=== PATIENT | female | born 1940 | race Caucasian/White ===

== ENCOUNTER → 2016-05-28 | Outpatient (CLI) | payer MEDICARE, OTHER ==
[2016-05-28 13:50] LABS: ANION GAP 9 (5-19); BLOOD UREA NITROGEN 17 mg/dL (7-20); CALCIUM 9.4 mg/dL (8.4-10.2); CARBON DIOXIDE 31 mmol/L (22-30); CHLORIDE 102 mmol/L (98-107); GLUCOSE 76 mg/dL (75-110); POTASSIUM 4.3 mmol/L (3.6-5.0); SODIUM 141.7 mmol/L (137-145)
== END ==
LOC: OD 12:32
PROVIDERS: ATTEND Internal Medicine Cardiovascular Disease
DX: Z79.899 Other long term (current) drug therapy (principal)
CPT/HCPCS: 36415; 80048; 83735

== ENCOUNTER → 2016-06-19 | Outpatient (CLI) | payer MEDICARE, OTHER ==
--- NOTE | 2016-06-19 16:28 | WOMENS IMAGING REPORT ---
EXAM DESCRIPTION: BILAT SCREENING MAMMO W/CAD COMPLETED DATE/TIME: 06/19/2016 12:09 pm REASON FOR STUDY: Z12.31, ROUTINE SCREENING MAMMO Z12.31 ENCNTR SCREEN MAMMOGRAM FOR MALIGNANT NEOP LASM OF JENNY COMPARISON: 2009 to 2015 TECHNIQUE: Standard craniocaudal and mediolateral oblique views of each breast recorded using digita l acquisition. LIMITATIONS: None. FINDINGS: No masses, calcifications or architectural distortion. No areas of suspicion. Read with the assistance of CAD. .[facility] - R2 Cenova Version 1.3 .[facility] Imaging - R2 Cenova Version 1.3 .[facility] Imaging - R2 Cenova Version 2.4 .[facility] [place] R2 Cenova Version 2.4 .[facility] - R2 Quill Layer Version 9.2 BREAST DENSITY: b. There are scattered areas of fibroglandular density. BIRAD: 1 NEGATIVE RECOMMENDATION: ROUTINE SCREENING COMMENT: PATIENT NOTIFIED BY LETTER. The [employer] recommends an annual screening mammogram for women aged 40 years or over. Each patient will receive a reminder prior to the anniversary date of her mammogram. The [employer] (ACR) has developed recommendations for screening MRI of the breast s in certain patient populations, to be used in conjunction with mammography. Breast MRI surveillanc e may be appropriate for women with more than 20% lifetime risk of developing breast cancer as deter mined by genetic testing, significant family history of the disease, or history of mantle radiation f or Hodgkins Disease. ACR Practice Guidelines 2008. TECHNICAL DOCUMENTATION: FINDING NUMBER: (1) ASSESSMENT: (1) JOB ID: [id number] [employer]- All Rights Reserved
== END ==
LOC: WI 11:28
PROVIDERS: ATTEND Family Medicine
DX: Z12.31 Encounter for screening mammogram for malignant neoplasm of breast (principal)
CPT/HCPCS: 77067; G0202

== ENCOUNTER → 2016-07-04 | Outpatient (CLI) | payer MEDICARE, OTHER | LOC: RAD 13:22 | PROVIDERS: ATTEND Family Medicine | DX: E03.9 Hypothyroidism, unspecified (principal) | CPT/HCPCS: 76536 ==

== ENCOUNTER → 2016-08-28 | Outpatient (CLI) | payer MEDICARE, OTHER | LOC: OD 11:19 | PROVIDERS: ATTEND Internal Medicine Cardiovascular Disease | DX: E61.2 Magnesium deficiency (principal); R73.01 Impaired fasting glucose; E03.9 Hypothyroidism, unspecified | CPT/HCPCS: 36415; 83036; 83735; 84443 ==

== ENCOUNTER → 2017-02-20 | Outpatient (CLI) | payer MEDICARE, OTHER ==
[2017-02-20 10:57] LABS: ALANINE AMINOTRANSFERASE 30 U/L (9-52); ALBUMIN 3.8 g/dL (3.5-5.0); ALKALINE PHOSPHATASE 60 U/L (38-126); ANION GAP 9 (5-19); ASPARTATE AMINO TRANSFERASE 25 U/L (14-36); BILIRUBIN,DIRECT 0.4 mg/dL (0.0-0.4); BILIRUBIN,TOTAL 0.9 mg/dL (0.2-1.3); BLOOD UREA NITROGEN 17 mg/dL (7-20); CALCIUM 9.9 mg/dL (8.4-10.2); CARBON DIOXIDE 27 mmol/L (22-30); CHLORIDE 106 mmol/L (98-107); CHOLESTEROL 210.91 mg/dL (0-200); CREATININE RESULT 0.71 mg/dL (0.52-1.25); Direct HDL 59 mg/dL (>40); GLUCOSE 97 mg/dL (75-110); MAGNESIUM 1.8 mg/dL (1.6-2.3); POTASSIUM 4.4 mmol/L (3.6-5.0); SODIUM 141.8 mmol/L (137-145); TOTAL PROTEIN 6.1 g/dL (6.3-8.2); TRIGLYCERIDES 90 mg/dL (<150)
[2017-02-20 11:09] LABS: DIRECT LDL 128 mg/dL (<100)
== END ==
LOC: OD 09:40
PROVIDERS: ATTEND Internal Medicine Cardiovascular Disease
DX: E78.00 Pure hypercholesterolemia, unspecified (principal); E03.9 Hypothyroidism, unspecified; E61.2 Magnesium deficiency; Z79.899 Other long term (current) drug therapy
CPT/HCPCS: 36415; 80048; 80061; 80076; 83735; 84443

== ENCOUNTER → 2017-04-15 | Outpatient (CLI) | payer MEDICARE, OTHER ==
--- NOTE | 2017-04-15 11:42 | RADIOLOGY REPORT (SQ) ---
EXAM DESCRIPTION: VENOUS UNILATERAL LOWER COMPLETED DATE/TIME: 04/15/2017 11:18 am REASON FOR STUDY: PAIN R KNEE M25.561 PAIN IN RIGHT KNEE M79.89 OTHER SPECIFIED SOFT TISSUE DISORD ERS COMPARISON: None. TECHNIQUE: Dynamic and static brown scale and color images acquired of the right leg venous system. S elected spectral images acquired with additional compression and augmentation maneuvers. The contrala teral common femoral vein and saphenofemoral junction were also imaged. Images stored on PACS. LIMITATIONS: None. FINDINGS: COMMON FEMORAL: Normal phasicity, compression and augmentation. No visualized echogenic ma terial on brown scale. No defects on color images. FEMORAL: Normal compression and augmentation. No visualized echogenic material on brown scale. No defe cts on color images. POPLITEAL: Normal compression, augmentation. No visualized echogenic material on brown scale. No defec ts on color images. CALF VESSELS: Normal compression, augmentation. No visualized echogenic material on brown scale. No de fects on color images. GSV and SSV: Normal compression, augmentation. No visualized echogenic material on brown scale. No def ects on color images. ANY DEEP VENOUS INSUFFICIENCY: Not evaluated. ANY EVIDENCE OF POPLITEAL CYST: No. OTHER: No other significant finding. CONTRALATERAL COMMON FEMORAL VEIN AND SAPHENOFEMORAL JUNCTION: Normal phasicity, compression and augmentation. No visualized echogenic material on brown scale. No de fects on color images. IMPRESSION: NO EVIDENCE DVT OR SVT IN THE RIGHT LEG. TECHNICAL DOCUMENTATION: JOB ID: [id number] [employer]- All Rights Reserved
== END ==
LOC: SP 10:35
PROVIDERS: ATTEND Registered Nurse
DX: M79.89 Other specified soft tissue disorders (principal)
CPT/HCPCS: 93971

== ENCOUNTER → 2017-04-23 | Outpatient (CLI) | payer MEDICARE, OTHER | LOC: OD 08:30 | PROVIDERS: ATTEND Internal Medicine Cardiovascular Disease | DX: E03.9 Hypothyroidism, unspecified (principal); E61.2 Magnesium deficiency ==

== ENCOUNTER → 2017-07-01 | Outpatient (CLI) | payer MEDICARE ==
--- NOTE | 2017-07-01 16:48 | WOMENS IMAGING REPORT ---
EXAM DESCRIPTION: 3D SCREENING MAMMO BILAT COMPLETED DATE/TIME: 07/01/2017 12:59 pm REASON FOR STUDY: ROUTINE SCREENING; Z12.31 Z12.31 ENCNTR SCREEN MAMMOGRAM FOR MALIGNANT NEOPLASM O F JENNY COMPARISON: 06/19/2016 and 06/12/2015. TECHNIQUE: Standard craniocaudal and mediolateral oblique views of each breast recorded using digita l acquisition and breast tomosynthesis. LIMITATIONS: None. FINDINGS: No masses, calcifications or architectural distortion. No areas of suspicion. Read with the assistance of CAD. .[facility] - R2 Cenova Version 1.3 .[facility] Imaging - R2 Cenova Version 1.3 .[facility] Imaging - R2 Cenova Version 2.4 .[facility] [place]2 Cenova Version 2.4 .[facility] - R2 Multifocal Button Generator Version 9.2 IMPRESSION: NORMAL MAMMOGRAM. BIRADS 1. BREAST DENSITY: b. There are scattered areas of fibroglandular density. BIRAD: 1 NEGATIVE RECOMMENDATION: ROUTINE SCREENING COMMENT: The patient has been notified of the results by letter per MQSA requirements. Additional no tification policies are in place for contacting patient with suspicious or incomplete findings. Quality ID #225: The [employer] recommends an annual screening mammogram for women aged 40 years or over. This facility utilizes a reminder system to ensure that all patients receive reminder letters, and/or direct phone calls for appointments. This includes reminders for routine scr eening mammograms, diagnostic mammograms, or other Breast Imaging Interventions when appropriate. Th is patient will be placed in the appropriate reminder system. The [employer] (ACR) has developed recommendations for screening MRI of the breast s in certain patient populations, to be used in conjunction with mammography. Breast MRI surveillanc e may be appropriate for women with more than 20% lifetime risk of developing breast cancer as deter mined by genetic testing, significant family history of the disease, or history of mantle radiation f or Hodgkins Disease. ACR Practice Guidelines 2008. DBT Technology DBT is a type of tomographic mammography. With conventional mammography, overlapping breast tissue ma y make lesions difficult to detect, even with good compression. DBT uses an x-ray tube that rotates a round the breast, taking images at different angles. These images are then combined to create thin sl ices of the breast that the radiologist can view as a 3D reconstruction. The [employer] unit can perform full-field digital mammograms (2D imaging); or DBT (3D imaging); or both, in a combination mode that quickly performs both the mammogram and the tomosynthesis scan while the breast is still compressed. PQRS 6045F: Fluoroscopic imaging is not utilized for breast tomosynthesis. TECHNICAL DOCUMENTATION: FINDING NUMBER: (1) ASSESSMENT: (1) JOB ID: [id number] [employer]- All Rights Reserved
== END ==
LOC: WI 10:56
PROVIDERS: ATTEND Family Medicine
DX: Z12.31 Encounter for screening mammogram for malignant neoplasm of breast (principal)
CPT/HCPCS: 77063; 77067

== ENCOUNTER → 2017-11-10 | Outpatient (CLI) | payer MEDICARE, OTHER | LOC: OD 07:54 | PROVIDERS: ATTEND Internal Medicine Cardiovascular Disease | DX: E03.9 Hypothyroidism, unspecified (principal); E61.2 Magnesium deficiency; E56.9 Vitamin deficiency, unspecified | CPT/HCPCS: 36415; 82306; 83735; 84443 ==

== ENCOUNTER → 2018-02-20 | Outpatient (CLI) | payer MEDICARE, OTHER ==
--- NOTE | 2018-02-20 12:53 | WOMENS IMAGING REPORT ---
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 Selected additional c olor/power Doppler images recorded. All images stored to PACS. LIMITATIONS: None. FINDINGS: RIGHT LOBE: Normal size. Heterogeneous echotexture. No cystic or solid masses. LEFT LOBE: Normal size. Heterogeneous echotexture. No cystic or solid masses. ISTHMUS: Normal size. Homogeneous echotexture. No cystic or solid masses. OTHER: No other significant finding. IMPRESSION: Heterogeneous gland which is unchanged. No dominant nodule. TECHNICAL DOCUMENTATION: JOB ID: [id number] [employer]- All Rights Reserved Reading location - IP/workstation name: [email or web address]
== END ==
LOC: WI 11:39
PROVIDERS: ATTEND Internal Medicine Cardiovascular Disease
DX: E04.1 Nontoxic single thyroid nodule (principal); E03.9 Hypothyroidism, unspecified
CPT/HCPCS: 76536

== ENCOUNTER → 2018-03-11 | Outpatient (CLI) | payer MEDICARE, OTHER ==
--- NOTE | 2018-03-11 12:52 | XCELERA REPORT ---
[address] [facility] [address] Lower Extremity Venous Evaluation Procedure: Color flow and duplex imaging of the veins of the left lower extremity as well as the right Common Femoral vein. Right Sided Venous Evaluation The right common femoral vein is fully compressible. Spontaneous and phasic flow is present in the right common femoral vein. Left Sided Venous Evaluation Normal vessel filling wall to wall, compression and augmentation as well as Colour flow down to the infrageniculate veins. Interpretation Summary No duplex evidence of DVT or obstruction in the left lower extremity nor in the right Common Femoral vein. Name: SUKHWINDER NORRIS Age: 77 yrs Gender: Female : 1940 Patient Status: Outpatient Patient Location: Study Date: 03/11/2018 09:57 AM Reason For Study: LLE PAIN Ordering Physician: STACEY LLAMAS Performed By: Jean Garza : STACEY LLAMAS > Dick Blackwell
== END ==
LOC: SP 09:29
PROVIDERS: ATTEND Family Medicine
DX: I73.9 Peripheral vascular disease, unspecified (principal)
CPT/HCPCS: 93971

== ENCOUNTER → 2018-05-04 | Outpatient (CLI) | payer MEDICARE, OTHER ==
[2018-05-04 08:44] LABS: HEMATOCRIT 37.5 % (36.0-47.0); HEMOGLOBIN 12.9 g/dL (12.0-15.5); MEAN CORPUSCULAR HEMOGLOBIN 35.4 pg (27.0-33.4); MEAN CORPUSCULAR HGB CONC 34.5 g/dL (32.0-36.0); MEAN CORPUSCULAR VOLUME 103 fl (80-97); PLATELET COUNT 212 10^3/uL (150-450); RED BLOOD COUNT 3.66 10^6/uL (3.72-5.28); RED CELL DISTRIBUTION WIDTH 13.6 % (11.5-14.0); WHITE BLOOD COUNT 4.6 10^3/uL (4.0-10.5)
[2018-05-04 09:21] LABS: ALANINE AMINOTRANSFERASE 14 U/L (9-52); ALBUMIN 3.8 g/dL (3.5-5.0); ALKALINE PHOSPHATASE 53 U/L (38-126); ANION GAP 6 (5-19); ASPARTATE AMINO TRANSFERASE 20 U/L (14-36); BILIRUBIN,DIRECT 0.3 mg/dL (0.0-0.4); BILIRUBIN,TOTAL 0.7 mg/dL (0.2-1.3); BLOOD UREA NITROGEN 20 mg/dL (7-20); CALCIUM 9.3 mg/dL (8.4-10.2); CARBON DIOXIDE 25 mmol/L (22-30); CHLORIDE 112 mmol/L (98-107); GLUCOSE 97 mg/dL (75-110); POTASSIUM 4.3 mmol/L (3.6-5.0); SODIUM 143.3 mmol/L (137-145); TOTAL PROTEIN 6.5 g/dL (6.3-8.2); TRIGLYCERIDES 75 mg/dL (<150)
[2018-05-04 09:31] LABS: DIRECT LDL 134 mg/dL (<100)
== END ==
LOC: LAB 08:23
PROVIDERS: ATTEND Physician Assistant
DX: E78.00 Pure hypercholesterolemia, unspecified (principal); E61.2 Magnesium deficiency; R25.2 Cramp and spasm; E03.9 Hypothyroidism, unspecified; Z79.899 Other long term (current) drug therapy
CPT/HCPCS: 36415; 80048; 80061; 80076; 83735; 84443; 85027

== ENCOUNTER → 2018-08-05 | Outpatient (CLI) | payer MEDICARE, OTHER ==
--- NOTE | 2018-08-05 10:28 | WOMENS IMAGING REPORT ---
EXAM DESCRIPTION: BILAT SCREENING MAMMO W/CAD COMPLETED DATE/TIME: 08/05/2018 9:35 am REASON FOR STUDY: Z12.31 ROUTINE BILATERAL SCREENING Z12.31 ENCNTR SCREEN MAMMOGRAM FOR MALIGNANT N EOPLASM OF JENNY COMPARISON: 2010 -2017 TECHNIQUE: Standard craniocaudal and mediolateral oblique views of each breast recorded using Geodruida l acquisition. LIMITATIONS: None. FINDINGS: No masses, calcifications or architectural distortion. No areas of suspicion. Read with the assistance of CAD. .[facility] - R2 Cenova Version 1.3 .[facility] Imaging - R2 Cenova Version 2.1 .[facility] - R2 Cenova Version 2.4 .[facility] - R2 Cenova Version 2.4 .[facility] - R2 Finger Grip Machine Operator Version 9.2 IMPRESSION: NORMAL MAMMOGRAM. BIRADS 1. BREAST DENSITY: b. There are scattered areas of fibroglandular density. BIRAD: 1 NEGATIVE RECOMMENDATION: ROUTINE SCREENING COMMENT: The patient has been notified of the results by letter per [place] requirements. Additional no tification policies are in place for contacting patient with suspicious or incomplete findings. Quality ID #[id number]: The [employer] recommends an annual screening mammogram for women aged 40 years or over. This facility utilizes a reminder system to ensure that all patients receive reminder letters, and/or direct phone calls for appointments. This includes reminders for routine scr eening mammograms, diagnostic mammograms, or other Breast Imaging Interventions when appropriate. Th is patient will be placed in the appropriate reminder system. The [employer] (ACR) has developed recommendations for screening MRI of the breast s in certain patient populations, to be used in conjunction with mammography. Breast MRI surveillanc e may be appropriate for women with more than 20% lifetime risk of developing breast cancer as deter mined by genetic testing, significant family history of the disease, or history of mantle radiation f or Hodgkins Disease. ACR Practice Guidelines 2008. TECHNICAL DOCUMENTATION: FINDING NUMBER: (1) ASSESSMENT: (1) JOB ID: [id number] [employer]- All Rights Reserved Reading location - IP/workstation name: [email or web address]
== END ==
LOC: WI 09:17
PROVIDERS: ATTEND Family Medicine
DX: Z12.31 Encounter for screening mammogram for malignant neoplasm of breast (principal)
CPT/HCPCS: 77067

== ENCOUNTER → 2018-08-13 | Outpatient (CLI) | payer MEDICARE, OTHER ==
[2018-08-13 09:13] LABS: ALANINE AMINOTRANSFERASE 21 U/L (9-52); ALBUMIN 3.8 g/dL (3.5-5.0); ALKALINE PHOSPHATASE 50 U/L (38-126); ANION GAP 8 (5-19); ASPARTATE AMINO TRANSFERASE 24 U/L (14-36); BILIRUBIN,DIRECT 0.2 mg/dL (0.0-0.4); BILIRUBIN,TOTAL 0.8 mg/dL (0.2-1.3); BLOOD UREA NITROGEN 18 mg/dL (7-20); CALCIUM 9.8 mg/dL (8.4-10.2); CARBON DIOXIDE 29 mmol/L (22-30); CHLORIDE 102 mmol/L (98-107); CHOLESTEROL 162.69 mg/dL (0-200); GLUCOSE 106 mg/dL (75-110); POTASSIUM 4.2 mmol/L (3.6-5.0); SODIUM 138.8 mmol/L (137-145); TOTAL PROTEIN 6.4 g/dL (6.3-8.2); TRIGLYCERIDES 64 mg/dL (<150)
[2018-08-13 09:24] LABS: DIRECT LDL 85 mg/dL (<100)
== END ==
LOC: LAB 08:24
PROVIDERS: ATTEND Physician Assistant
DX: E78.00 Pure hypercholesterolemia, unspecified (principal); E61.2 Magnesium deficiency; E03.9 Hypothyroidism, unspecified; R07.89 Other chest pain; Z79.899 Other long term (current) drug therapy
CPT/HCPCS: 36415; 80048; 80061; 80076; 83735; 84443

== ENCOUNTER → 2018-11-12 | Outpatient (CLI) | payer MEDICARE, OTHER ==
[2018-11-12 08:16] LABS: ALANINE AMINOTRANSFERASE 20 U/L (9-52); ALKALINE PHOSPHATASE 54 U/L (38-126); ANION GAP 8 (5-19); ASPARTATE AMINO TRANSFERASE 22 U/L (14-36); BILIRUBIN,DIRECT 0.2 mg/dL (0.0-0.4); BILIRUBIN,TOTAL 0.7 mg/dL (0.2-1.3); BLOOD UREA NITROGEN 16 mg/dL (7-20); CALCIUM 9.2 mg/dL (8.4-10.2); CARBON DIOXIDE 26 mmol/L (22-30); CHLORIDE 106 mmol/L (98-107); CHOLESTEROL 215.32 mg/dL (0-200); CREATINE KINASE 51 U/L (30-135); GLUCOSE 100 mg/dL (75-110); POTASSIUM 4.4 mmol/L (3.6-5.0); SODIUM 139.8 mmol/L (137-145); TOTAL PROTEIN 6.1 g/dL (6.3-8.2); TRIGLYCERIDES 110 mg/dL (<150)
[2018-11-12 08:26] LABS: DIRECT LDL 126 mg/dL (<100)
== END ==
LOC: LAB 07:32
PROVIDERS: ATTEND Internal Medicine Cardiovascular Disease
DX: E61.2 Magnesium deficiency (principal); E03.9 Hypothyroidism, unspecified; E78.00 Pure hypercholesterolemia, unspecified; R25.2 Cramp and spasm; Z79.899 Other long term (current) drug therapy
CPT/HCPCS: 36415; 80048; 80061; 80076; 82550; 83735; 84443

== ENCOUNTER 2019-02-22 12:18 | Observation (INO) | payer MEDICARE, OTHER ==
[2019-02-22 13:07] LABS: ABSOLUTE EOSINOPHILS # (AUTO) 0.2 10^3/uL (0.0-0.6); ABSOLUTE LYMPHOCYTES (AUTO) 3.8 10^3/uL (0.5-4.7); ABSOLUTE MONOCYTES (AUTO) 0.8 10^3/uL (0.1-1.4); ABSOLUTE NEUT (AUTO) 3.2 10^3/uL (1.7-8.2); BASOPHILS % (AUTO) 0.4 % (0-2); EOSINOPHILS % (AUTO) 2.3 % (0-6); HEMATOCRIT 38.2 % (36.0-47.0); LYMPHOCYTES % (AUTO) 47.7 % (13-45); MEAN CORPUSCULAR HEMOGLOBIN 34.9 pg (27.0-33.4); MEAN CORPUSCULAR VOLUME 103 fl (80-97); MONOCYTES % (AUTO) 9.5 % (3-13); PLATELET COUNT 239 10^3/uL (150-450); RED BLOOD COUNT 3.72 10^6/uL (3.72-5.28); RED CELL DISTRIBUTION WIDTH 14.3 % (11.5-14.0); SEGMENTED NEUTROPHILS % (AUTO) 40.1 % (42-78); TOTAL CELLS COUNTED % (AUTO) 100 %; WHITE BLOOD COUNT 7.9 10^3/uL (4.0-10.5)
--- NOTE | 2019-02-22 13:10 | ER Document Report ---
ED Cardiac - General Chief Complaint: Palpitations Stated Complaint: CHEST DISCOMFORT Time Seen by Provider: 02/22/19 12:51 Primary Care Provider: DAISHA TOVAR PA-C [PHYSICIAN STRATEGIC PROCUREMENT MANAGER] - Follow up as needed Notes: Patient is a 78-year-old female with a history of hypothyroidism who presents to the emergency department the chief complaint of chest discomfort. Patient reports this morning around 7 AM she felt chest palpitations and chest discomfort. Patient reports she did take a dose of her metoprolol. Patient reports she does take a 50 mg of metoprolol twice a day. Patient reports she is been on this for 15 years for an irregular heartbeat but was never diagnosed with A. fib. Patient reports chest discomfort continued and EMS was called. EMS reported the patient was in A. fib with a heart rate of 1 10-1 25. EMS did administer 20 mg of Cardizem as well as normal saline 300 mL bolus. Patient states after receiving this medication she is not currently having any chest pain or discomfort. Patient reports her shortness of breath has also significantly improved. Patient reports she was recently treated with prednisone and finished her last dose yesterday. Patient states this was for a cervical strain. Patient reports this has since improved. Patient reports she does go to Dr. Alva every 6 months per cardiology. Patient reports her last stress test was 1 year ago and was told she had 2 small leaks in her heart but nothing that was significant. Patient also reports having increased urinary frequency over the past few days. TRAVEL OUTSIDE OF THE [place] IN LAST 30 DAYS: No - Related Data Allergies/Adverse Reactions: No Known Allergies Allergy (Verified 02/22/19 12:45) Past Medical History - General Information source: Patient - Social History Smoking Status: Never Smoker Frequency of alcohol use: None Drug Abuse: None Lives with: Family Family History: Reviewed & Not Pertinent Patient has suicidal ideation: No Patient has homicidal ideation: No - Past Medical History Cardiac Medical History: Reports: Hx Hypercholesterolemia, Hx Hypertension Pulmonary Medical History: Reports: None EENT Medical History: Reports: None Neurological Medical History: Reports: None Endocrine Medical History: Reports: Hx Hypothyroidism Renal/ Medical History: Reports: None Malignancy Medical History: Reports: None GI Medical History: Reports: None Musculoskeletal Medical History: Reports None Skin Medical History: Reports None Psychiatric Medical History: Reports: None Traumatic Medical History: Reports: None Infectious Medical History: Reports: None Surgical Hx: Negative - Immunizations Hx Diphtheria, Pertussis, Tetanus Vaccination: Yes Review of Systems - Review of Systems Constitutional: No symptoms reported EENT: No symptoms reported Cardiovascular: See HPI Respiratory: See HPI Gastrointestinal: No symptoms reported Genitourinary: See HPI Female Genitourinary: No symptoms reported Musculoskeletal: No symptoms reported Skin: No symptoms reported Hematologic/Lymphatic: No symptoms reported Neurological/Psychological: No symptoms reported Physical Exam - Vital signs Vitals: Resp BP Pulse Ox 19 109/66 98 02/22/19 12:30 02/22/19 12:30 02/22/19 12:30 - Notes Notes: GENERAL: Well-appearing, well-nourished and in no acute distress. HEAD: Atraumatic, normocephalic. EYES: Pupils equal round and reactive to light, extraocular movements intact, sclera anicteric, conjunctiva are normal. ENT: Nares patent, oropharynx clear without exudates. Moist mucous membranes. NECK: Normal range of motion, supple without lymphadenopathy or JVD. LUNGS: Breath sounds clear to auscultation bilaterally and equal. No wheezes rales or rhonchi. HEART: Irregular rhythm without murmurs, rubs or gallops. ABDOMEN: Soft, nontender, normoactive bowel sounds. No guarding, no rebound. No masses appreciated. BACK: No cervical, thoracic, lumbar midline tenderness. No saddle anesthesia, normal distal neurovascular exam. GENITOURINARY: Deferred. EXTREMITIES: Normal range of motion, no pitting or edema. No clubbing or cyanosis. NEUROLOGICAL: Cranial nerves II through XII grossly intact. Normal speech, normal gait. PSYCH: Normal mood, normal affect. SKIN: Warm, Dry, normal turgor, no rashes or lesions noted. Course - Re-evaluation Re-evalutation: 02/22/19 13:09 Upon initial evaluation of the patient she is resting comfortably on stretcher no acute distress. Patient denies chest pain, shortness of breath or palpitations. Patient is a A. fib on the monitor with her heart rate ranging between the 50s and 60s. Patient is not hypotensive or hypoxic. We will continue to monitor. 02/22/19 14:24 Upon reevaluation patient is resting comfortably on stretcher. Patient does remain in atrial fibrillation via the monitoring analyst. Patient does not have any chest pain, shortness of breath or palpitations at this time. Her rate is ranging between 60 and 98. 02/22/19 14:54 I did speak with the patient regards to admitting her to the hospital. Patient does remain in A. fib. This rate is controlled in between 60 and 100. I did speak with Chu DOMINGUEZ with the hospitalist group who will admit. Patient agrees to stay. - Vital Signs Vital signs: Temp Pulse Resp BP Pulse Ox 98.4 F 15 118/74 96 02/22/19 12:44 02/22/19 14:01 02/22/19 14:01 02/22/19 14:01 - Laboratory Result Diagrams: 02/22/19 12:35 02/22/19 12:35 Laboratory results interpreted by me: 02/22/19 02/22/19 12:35 12:35 MCV 103 H MCH 34.9 H RDW 14.3 H Lymph % (Auto) 47.7 H Seg Neutrophils % 40.1 L Chloride 109 H Total Protein 6.0 L - EKG Interpretation by Me Additional EKG results interpreted by me: 02/22/19 13:09 Patient's EKG shows an atrial fibrillation with a heart rate of 64. Patient's QT is 408 and QTc is 421. Patient has a normal axis deviation. There is no ST segment changes in consecutive leads. Patient's EKG for comparison is from 2013 and does show a sinus rhythm. Discharge - Discharge Clinical Impression: New onset a-fib, Palpitations Chest pain Qualifiers: Chest pain type: unspecified Qualified Code(s): R07.9 - Chest pain, unspecified Condition: Stable Disposition: ADMITTED OBSERVATION Admitting Provider: Belen (Hospitalist) Unit Admitted: Telemetry Referrals: DAISHA TOVAR PA-C [PHYSICIAN STRATEGIC PROCUREMENT MANAGER] - Follow up as needed
[2019-02-22 13:18] LABS: ALBUMIN 3.5 g/dL (3.5-5.0); ALKALINE PHOSPHATASE 48 U/L (38-126); ANION GAP 8 (5-19); ASPARTATE AMINO TRANSFERASE 18 U/L (14-36); BILIRUBIN,DIRECT 0.1 mg/dL (0.0-0.4); BILIRUBIN,TOTAL 0.4 mg/dL (0.2-1.3); BLOOD UREA NITROGEN 16 mg/dL (7-20); CALCIUM 8.8 mg/dL (8.4-10.2); CARBON DIOXIDE 25 mmol/L (22-30); CHLORIDE 109 mmol/L (98-107); GLUCOSE 106 mg/dL (75-110); POTASSIUM 3.7 mmol/L (3.6-5.0)
--- NOTE | 2019-02-22 13:20 | EKG REPORT ---
SEVERITY:- ABNORMAL ECG - ATRIAL FIBRILLATION : Confirmed by: Stevie Alva MD 22-Feb-2019 13:19:35
--- NOTE | 2019-02-22 14:15 | RADIOLOGY REPORT (SQ) ---
EXAM DESCRIPTION: CHEST 2 VIEWS COMPLETED DATE/TIME: 02/22/2019 1:38 pm REASON FOR STUDY: chest pain, palpitations COMPARISON: 04/07/2014 EXAM PARAMETERS: NUMBER OF VIEWS: two views TECHNIQUE: Digital Frontal and Lateral radiographic views of the chest acquired. RADIATION DOSE: NA LIMITATIONS: none FINDINGS: LUNGS AND PLEURA: Irregular left basilar scarring or atelectasis unchanged from prior. MEDIASTINUM AND HILAR STRUCTURES: No masses or contour abnormalities. HEART AND VASCULAR STRUCTURES: Cardiomegaly. BONES: No acute findings. HARDWARE: None in the chest. OTHER: No other significant finding. IMPRESSION: Irregular left basilar scarring or atelectasis unchanged from prior. No acute airspace abnormality. Cardiomegaly. TECHNICAL DOCUMENTATION: JOB ID: [id number] [employer]- All Rights Reserved Reading location - IP/workstation name: [email or web address]
[2019-02-22 14:20] LABS: APPEARANCE,URINE CLEAR; BILIRUBIN,URINE NEGATIVE (NEGATIVE); COLOR,URINE YELLOW; GLUCOSE, URINE NEGATIVE (NEGATIVE); KETONES,URINE NEGATIVE (NEGATIVE); LEUKOCYTE ESTERASE,URINE NEGATIVE (NEGATIVE); NITRITE,URINE NEGATIVE (NEGATIVE); PROTEIN,URINE NEGATIVE (NEGATIVE); URINE SPECIFIC GRAVITY 1.008; UROBILINOGEN,URINE NEGATIVE mg/dL (<2.0)
[2019-02-22] MEDS ORDERED: ONDANSETRON 4 MG TAB.RAPDIS PO PRN (15:38)
[2019-02-22] MEDS ORDERED: ZOLPIDEM TARTRATE 5 MG TABLET PO PRN (15:38)
[2019-02-22] MEDS ORDERED: ONDANSETRON HCL INJ/PF 4 MG/2 ML SDV IV PRN (15:38)
[2019-02-22] MEDS ORDERED: ENOXAPARIN SODIUM INJ 40 MG/0.4 ML DISP.SYRIN SUBCUT SCH (16:00)
--- NOTE | 2019-02-22 16:17 | PDOC H&P ---
History of Present Illness Admission Date/PCP: 02/22/19 14:59 STACEY LLAMAS MD History of Present Illness: SUKHWINDER NORRIS is a 78 year old female who this morning around 0500 had some shortness of breath, generalized weakness and "almost fainted." She also complained of some slight chest pain. Has had a rapid heartbeat for almost 15 years now and is been having regular cardiac work-ups either yearly or once every 2 years. Patient was prescribed metoprolol 50 mg twice daily as well as p.o. magnesium. She presented to the emergency room for new onset atrial fib. Mass brought her in and when EMS arrived her heart rate was between 110 and 125. 20 mg of Cardizem IV heart rate now is been between 60 and 80 but still irregular and still in atrial fib. She does have a history of coronary artery disease with the distal LAD. His other medical problems consist of hypothyroidism and GERD. Past Medical History Cardiac Medical History: Reports: Hyperlipidema, Hypertension Pulmonary Medical History: Reports: None EENT Medical History: Reports: None Neurological Medical History: Reports: None Endocrine Medical History: Reports: Hypothyroidism Endocrine History Note: Hypothyroid Renal/ Medical History: Reports: None Malignancy Medical History: Reports: None GI Medical History: Reports: Gastroesophageal Reflux Disease Musculoskeltal Medical History: Reports: None Skin Medical History: Reports: None Psychiatric Medical History: Reports: None Traumatic Medical History: Reports: None Infectious Medical History: Reports: None Social History Lives with: Family Smoking Status: Never Smoker - Advance Directive Resuscitation Status: Full Code Family History Family History: Reviewed & Not Pertinent Parental Family History Reviewed: No Children Family History Reviewed: No Sibling(s) Family History Reviewed.: No Medication/Allergy Allergies/Adverse Reactions: No Known Allergies Allergy (Verified 02/22/19 12:45) Review of Systems Constitutional: PRESENT: weakness. ABSENT: chills, fever(s), headache(s), weight gain, weight loss Cardiovascular: PRESENT: chest pain, dyspnea on exertion Respiratory: ABSENT: cough, hemoptysis Neurological: ABSENT: abnormal gait, abnormal speech, confusion, dizziness, focal weakness, syncope Psychiatric: ABSENT: anxiety, depression, homidical ideation, suicidal ideation Physical Exam Vital Signs: Temp Pulse Resp BP Pulse Ox 98.4 F 15 118/74 96 02/22/19 12:44 02/22/19 14:01 02/22/19 14:01 02/22/19 14:01 Intake & Output 02/21/19 02/22/19 02/23/19 06:59 06:59 06:59 Weight 86.7 kg General appearance: PRESENT: no acute distress, other - Sitting up in bed talking in full sentences, is in the room Respiratory exam: PRESENT: clear to auscultation geoffrey. ABSENT: rales, rhonchi, wheezes Cardiovascular exam: PRESENT: irregular rhythm Neurological exam: PRESENT: alert, awake, oriented to person, oriented to place, oriented to time, oriented to situation, CN II-XII grossly intact. ABSENT: motor sensory deficit Psychiatric exam: PRESENT: appropriate affect, normal mood. ABSENT: homicidal ideation, suicidal ideation Results Laboratory Results: 02/22/19 12:35 02/22/19 12:35 02/22/19 02/22/19 02/22/19 12:35 12:35 12:35 WBC 7.9 RBC 3.72 Hgb 13.0 Hct 38.2 MCV 103 H MCH 34.9 H MCHC 34.0 RDW 14.3 H Plt Count 239 Seg Neutrophils % 40.1 L Sodium 142.1 Potassium 3.7 Chloride 109 H Carbon Dioxide 25 Anion Gap 8 BUN 16 Creatinine 0.84 Est GFR ( Amer) > 60 Glucose 106 Calcium 8.8 Magnesium 1.9 Total Bilirubin 0.4 AST 18 Alkaline Phosphatase 48 Total Protein 6.0 L Albumin 3.5 Urine Color Urine Appearance Urine pH Ur Specific [place] Urine Protein Urine Glucose (UA) Urine Ketones Urine Blood Urine Nitrite Ur Leukocyte Esterase Urine WBC (Auto) Urine RBC (Auto) 02/22/19 13:40 WBC RBC Hgb Hct MCV MCH MCHC RDW Plt Count Seg Neutrophils % Sodium Potassium Chloride Carbon Dioxide Anion Gap BUN Creatinine Est GFR ( Amer) Glucose Calcium Magnesium Total Bilirubin AST Alkaline Phosphatase Total Protein Albumin Urine Color YELLOW Urine Appearance CLEAR Urine pH 6.0 Ur Specific [place] 1.008 Urine Protein NEGATIVE Urine Glucose (UA) NEGATIVE Urine Ketones NEGATIVE Urine Blood NEGATIVE Urine Nitrite NEGATIVE Ur Leukocyte Esterase NEGATIVE Urine WBC (Auto) 0 Urine RBC (Auto) 0 02/22/19 12:35 Troponin I < 0.012 Impressions: Chest X-Ray 02/22/19 12:52 IMPRESSION: Irregular left basilar scarring or atelectasis unchanged from prior. No acute airspace abnormality. Cardiomegaly. Assessment and Plan - Diagnosis (1) GERD (gastroesophageal reflux disease) Is this a current diagnosis for this admission?: Yes (2) Hypothyroid Is this a current diagnosis for this admission?: Yes (3) Chest pain Qualifiers: Chest pain type: unspecified Qualified Code(s): R07.9 - Chest pain, unsp ecified Is this a current diagnosis for this admission?: Yes (4) New onset a-fib Is this a current diagnosis for this admission?: Yes (5) Palpitations Is this a current diagnosis for this admission?: Yes - Plan Summary Summary: 02/22/2019 Spoke to the patient's bottom sander Dr. Paul Alva who is very helpful. He recommended to get the patient's magnesium level higher which might actually convert her out of her atrial fib. He recommended 1 g of magnesium IV and then 400 mg twice daily p.o. Also starting sotalol 80 mg twice daily. Also he advised starting the patient on Cardizem CD 120 twice daily Also I am going to order an echocardiogram and have Dr. Alva read this. Patient is hemodynamically stable now. Pulse of 83 blood pressure 119/45 O2 sat 98% on room air - Time Time Spent with patient: 35 or more minutes
[2019-02-22] MEDS ORDERED: PROMETHAZINE HCL INJ 25 MG/1 ML VIAL IV PRN (16:18)
[2019-02-22] MEDS: NORMAL SALINE 1000 ML 1,000 ML IV PRN (16:34)
[2019-02-22] MEDS ORDERED: MAGNESIUM SULFATE/D5W 1 GM/100 ML RTUPB IV ONE (17:00)
[2019-02-22] MEDS: SOTALOL HCL 80 MG TABLET PO SCH (17:08)
[2019-02-22 18:09] LABS: CREATINE KINASE MB 0.81 ng/mL (<4.55)
[2019-02-22 18:15] LABS: TROPONIN I < 0.012 ng/mL
[2019-02-22] MEDS: MAGNESIUM OXIDE 400 MG TABLET PO SCH (20:19)
[2019-02-22] MEDS: APIXABAN 5 MG TABLET PO SCH (20:20)
[2019-02-22 22:42] LABS: TROPONIN I < 0.012 ng/mL
[2019-02-23] MEDS: SOTALOL HCL 80 MG TABLET PO SCH ×3 (00:06→21:18)
[2019-02-23] MEDS: DILTIAZEM HCL 120 MG CAP.SR.24H PO SCH ×3 (00:06→21:18)
[2019-02-23] MEDS: FAMOTIDINE 20 MG TABLET PO SCH ×3 (00:06→21:18)
[2019-02-23] MEDS: ACETAMINOPHEN 325 MG TABLET PO PRN ×2 (00:08→23:01)
[2019-02-23 05:09] LABS: ANION GAP 6 (5-19); BLOOD UREA NITROGEN 16 mg/dL (7-20); CALCIUM 8.4 mg/dL (8.4-10.2); CARBON DIOXIDE 28 mmol/L (22-30); CHLORIDE 106 mmol/L (98-107); GLUCOSE 84 mg/dL (75-110); POTASSIUM 4.2 mmol/L (3.6-5.0)
[2019-02-23 05:21] LABS: CREATINE KINASE MB 0.59 ng/mL (<4.55)
[2019-02-23 05:32] LABS: TROPONIN I < 0.012 ng/mL
[2019-02-23] MEDS: NORMAL SALINE 1000 ML 1,000 ML IV PRN (07:22)
--- NOTE | 2019-02-23 07:58 | EKG REPORT ---
SEVERITY:- NORMAL ECG - SINUS RHYTHM EARLY PRECORDIAL TRANSITION, NEED TO R/O OLD TRUE POST PA : Confirmed by: Stevie Alva MD 23-Feb-2019 07:57:32
[2019-02-23] MEDS ORDERED: INFLUENZA QUAD (6MOS+) 2019-20 VAC 0.5 ML SYR IM ONE (08:00)
[2019-02-23] MEDS: MAGNESIUM OXIDE 400 MG TABLET PO SCH ×2 (10:25→17:30)
[2019-02-23] MEDS: DOCUSATE SODIUM 100 MG CAPSULE PO SCH (10:26)
[2019-02-23] MEDS: APIXABAN 5 MG TABLET PO SCH ×2 (10:26→17:30)
--- NOTE | 2019-02-23 10:27 | XCELERA REPORT ---
[address] [facility] [address] Lower Extremity Venous Evaluation Procedure: Color flow and duplex imaging of the veins of the left lower extremity as well as the right Common Femoral vein. Right Sided Venous Evaluation The right common femoral vein is fully compressible. Spontaneous and phasic flow is present in the right common femoral vein. Left Sided Venous Evaluation Normal vessel filling wall to wall, compression and augmentation as well as Colour flow down to the infrageniculate veins. Interpretation Summary No duplex evidence of DVT or obstruction in the left lower extremity nor in the right Common Femoral vein. Name: SUKHWINDER NORRIS Age: 78 yrs Gender: Female : 1940 Patient Status: [facility] Study [facility]: 02/22/2019 07:39 PM Reason For Study: Left calf pain, DVT Ordering Physician: ALAN KEARNS Performed By: Sondra Rogers : ALAN KEARNS > Dick Blackwell
--- NOTE | 2019-02-23 11:19 | PDOC PROGRESS REPORT ---
Subjective Progress Note for:: 02/23/19 Subjective:: The patient is a very pleasant, 78-year-old female, with past medical history significant for hyperlipidemia, hypertension, hypothyroidism, and PAF followed by Dr. Alva who was admitted 02/22/2019 for near syncope related to atrial fibrillation RVR. Patient was seen on morning rounds. She is found resting in bed comfortably on room air. She denies any further reports that she is feeling well and is hopeful to go home soon. She denies fever, chills, chest pain, palpitations, orthopnea, dyspnea, abdominal pain, nausea vomiting diarrhea. She reports that she has been ambulatory to the restroom without lightheadedness, dizziness. She denies additional near-syncope symptoms. She has no other questions or concerns at this time. No concerns per nursing. Reason For Visit: ATRIAL FIB,HYPOTHYROIDISM,GASTROESOPHAGEAL REFLUX Physical Exam Vital Signs: Temp Pulse Resp BP Pulse Ox 97.5 F 57 L 17 127/62 H 95 02/23/19 07:00 02/23/19 07:00 02/23/19 07:00 02/23/19 07:00 02/23/19 07:00 Intake & Output 02/22/19 02/23/19 02/24/19 06:59 06:59 06:59 Intake Total 502 888 Balance 502 888 Weight 86.7 kg General appearance: PRESENT: no acute distress, cooperative, well-developed, well-nourished - Overweight Head exam: PRESENT: atraumatic, normocephalic Eye exam: PRESENT: conjunctiva pink, EOMI, PERRLA. ABSENT: scleral icterus Ear exam: PRESENT: normal external ear exam Mouth exam: PRESENT: moist, tongue midline Neck exam: ABSENT: carotid bruit, JVD, lymphadenopathy, thyromegaly Respiratory exam: PRESENT: clear to auscultation geoffrey, symmetrical, unlabored. ABSENT: rales, rhonchi, wheezes Cardiovascular exam: PRESENT: bradycardia - HR 50-60, RRR, +S1, +S2. ABSENT: diastolic murmur, rubs, systolic murmur Pulses: PRESENT: normal dorsalis pedis pul Vascular exam: PRESENT: normal capillary refill GI/Abdominal exam: PRESENT: normal bowel sounds, soft. ABSENT: distended, guarding, mass, organolmegaly, rebound, tenderness Rectal exam: PRESENT: deferred Extremities exam: PRESENT: full ROM. ABSENT: calf tenderness, clubbing, pedal edema Neurological exam: PRESENT: alert, awake, oriented to person, oriented to place, oriented to time, oriented to situation, CN II-XII grossly intact. ABSENT: motor sensory deficit Psychiatric exam: PRESENT: appropriate affect, normal mood. ABSENT: homicidal ideation, suicidal ideation Skin exam: PRESENT: dry, intact, warm. ABSENT: cyanosis, rash Results Laboratory Results: 02/22/19 12:35 02/23/19 03:39 02/22/19 02/22/19 02/22/19 12:35 12:35 12:35 WBC 7.9 RBC 3.72 Hgb 13.0 Hct 38.2 MCV 103 H MCH 34.9 H MCHC 34.0 RDW 14.3 H Plt Count 239 Seg Neutrophils % 40.1 L Sodium 142.1 Potassium 3.7 Chloride 109 H Carbon Dioxide 25 Anion Gap 8 BUN 16 Creatinine 0.84 Est GFR ( Amer) > 60 Glucose 106 Calcium 8.8 Magnesium 1.9 Total Bilirubin 0.4 AST 18 Alkaline Phosphatase 48 Total Protein 6.0 L Albumin 3.5 TSH Urine Color Urine Appearance Urine pH Ur Specific Blain Urine Protein Urine Glucose (UA) Urine Ketones Urine Blood Urine Nitrite Ur Leukocyte Esterase Urine WBC (Auto) Urine RBC (Auto) 02/22/19 02/22/19 02/23/19 12:35 13:40 03:39 WBC RBC Hgb Hct MCV MCH MCHC RDW Plt Count Seg Neutrophils % Sodium 140.3 Potassium 4.2 Chloride 106 Carbon Dioxide 28 Anion Gap 6 BUN 16 Creatinine 0.85 Est GFR ( Amer) > 60 Glucose 84 Calcium 8.4 Magnesium Total Bilirubin AST Alkaline Phosphatase Total Protein Albumin TSH 3.86 Urine Color YELLOW Urine Appearance CLEAR Urine pH 6.0 Ur Specific Blain 1.008 Urine Protein NEGATIVE Urine Glucose (UA) NEGATIVE Urine Ketones NEGATIVE Urine Blood NEGATIVE Urine Nitrite NEGATIVE Ur Leukocyte Esterase NEGATIVE Urine WBC (Auto) 0 Urine RBC (Auto) 0 02/22/19 02/22/19 02/22/19 12:35 17:15 21:48 CK-MB (CK-2) 0.81 0.80 Troponin I < 0.012 < 0.012 < 0.012 02/23/19 03:39 CK-MB (CK-2) 0.59 Troponin I < 0.012 Impressions: Chest X-Ray 02/22/19 12:52 IMPRESSION: Irregular left basilar scarring or atelectasis unchanged from prior. No acute airspace abnormality. Cardiomegaly. Assessment and Plan - Diagnosis (1) Paroxysmal atrial fibrillation with RVR Is this a current diagnosis for this admission?: Yes (2) Chest pain Qualifiers: Chest pain type: unspecified Qualified Code(s): R07.9 - Chest pain, unspecified Is this a current diagnosis for this admission?: Yes (3) GERD (gastroesophageal reflux disease) Is this a current diagnosis for this admission?: Yes (4) Hypothyroid Is this a current diagnosis for this admission?: Yes - Plan Summary Summary: The patient was admitted to the medical floor on continuous cardiac telemetry. The previous provider spoke with Dr. Alva, the patient's established entrepreneurial finance professor, yesterday to establish plan of care. The patient's home dose metoprolol was discontinued. She was started on diltiazem, sotalol, and Eliquis for chronic anticoagulation. She did convert to NSR early this morning. Serial troponins were negative. Orthostatic vital signs are negative and patient is asymptomatic while ambulatory. Spoke with Dr. Alva today. He advises to continue monitoring the patient for an additional 24 hours. If she remains in sinus rhythm may discharged home tomorrow with close cardiology follow-up. He reports that he intends to do an outpatient echocardiogram; has canceled the previously ordered echo. TSH was checked; 3.86. Continue home dose levothyroxine. Continue home dose Protonix for management of GERD. Continue home dose Zetia. - Time Time Spent with patient: 25-34 minutes Medications reviewed and adjusted accordingly: Yes Anticipated discharge: Home Within: within 24 hours
[2019-02-23] MEDS ORDERED: CYCLOBENZAPRINE HCL 7.5 MG PO PRN (11:50)
[2019-02-23] MEDS: PANTOPRAZOLE SODIUM 40 MG TABLET.DR PO SCH (13:24)
[2019-02-23] MEDS: LEVOTHYROXINE SODIUM 0.075 MG TABLET PO SCH (13:24)
[2019-02-24] MEDS: NORMAL SALINE 1000 ML 1,000 ML IV PRN (00:23)
[2019-02-24] MEDS: ACETAMINOPHEN 325 MG TABLET PO PRN (04:06)
[2019-02-24] MEDS: LEVOTHYROXINE SODIUM 0.075 MG TABLET PO SCH ×2 (05:20→07:49)
[2019-02-24] MEDS: PANTOPRAZOLE SODIUM 40 MG TABLET.DR PO SCH (07:49)
[2019-02-24] MEDS ORDERED: EZETIMIBE 10 MG TABLET PO SCH (10:00)
[2019-02-24] MEDS: MAGNESIUM OXIDE 400 MG TABLET PO SCH (10:37)
[2019-02-24] MEDS: FAMOTIDINE 20 MG TABLET PO SCH (10:38)
[2019-02-24] MEDS: DOCUSATE SODIUM 100 MG CAPSULE PO SCH (10:38)
[2019-02-24] MEDS: SOTALOL HCL 80 MG TABLET PO SCH (10:38)
[2019-02-24] MEDS: DILTIAZEM HCL 120 MG CAP.SR.24H PO SCH (10:39)
[2019-02-24] MEDS: APIXABAN 5 MG TABLET PO SCH (10:39)
[2019-02-24 11:17] VITALS: BP 144/66
--- NOTE | 2019-02-24 14:46 | PDOC DISCHARGE SUMMARY ---
Impression - Admit/DC Date/PCP Admission Date/Primary Care Provider: 02/22/19 14:59 STACEY LLAMAS MD Discharge Date: 02/24/19 - Discharge Diagnosis (1) Paroxysmal atrial fibrillation with RVR Is this a current diagnosis for this admission?: Yes - Assessment Summary: The patient was admitted to the medical floor on continuous cardiac telemetry. The previous provider spoke with Dr. Alva, the patient's established staff certified nurse midwife, yesterday to establish plan of care. The patient's home dose metoprolol was discontinued. She was started on diltiazem, sotalol, and Eliquis for chronic anticoagulation. She did convert to NSR early this morning. Serial troponins were negative. Orthostatic vital signs are negative and patient is asymptomatic while ambulatory. Spoke with Dr. Alva today. He advises to continue monitoring the patient for an additional 24 hours. If she remains in sinus rhythm may discharged home tomorrow with close cardiology follow-up. He reports that he intends to do an outpatient echocardiogram; has canceled the previously ordered echo. TSH was checked; 3.86. Continue home dose levothyroxine. Continue home dose Protonix for management of GERD. Continue home dose Zetia. - Additional Information Resuscitation Status: Full Code Discharge Diet: Cardiac Discharge Activity: Activity As Tolerated Referrals: DAISHA TOVAR PA-C [PHYSICIAN EDGER MACHINE HELPER] - Follow up as needed (FAXED RECORDS TO OFFICE THEY WILL REVIEW AND SCHEDULE AN APPT AND NOTIFY PATIENT.) MARLA ALVA MD [EMERITUS] - (Their office will call you with an appointment.) Prescriptions: Sotalol HCl [Betapace 80 mg Tablet] 80 mg PO Q12 #60 tablet Diltiazem HCl [Cardizem Cd 120 mg Capsule] 120 mg PO Q12 #60 cap.sr.24h Apixaban [Eliquis 5 mg Tablet] 5 mg PO BID #60 tablet Home Medications: Cyclobenzaprine HCl [Fexmid 7.5 mg Tablet] 7.5 mg PO Q12HP PRN 02/22/19 Ezetimibe [Zetia 10 mg Tablet] 10 mg PO DAILY 02/22/19 Levothyroxine Sodium [Synthroid 0.075 mg Tablet] 0.075 mg PO Q6AM 02/22/19 Pantoprazole Sodium [Protonix [address] Tablet] 40 mg PO ACBRKFST 02/22/19 Apixaban [Eliquis 5 mg Tablet] 5 mg PO BID #60 tablet 02/24/19 Diltiazem HCl [Cardizem Cd 120 mg Capsule] 120 mg PO Q12 #60 cap.sr.24h 02/24/19 Sotalol HCl [Betapace 80 mg Tablet] 80 mg PO Q12 #60 tablet 02/24/19 History of Present Illiness History of Present Illness: SUKHWINDER NORRIS is a 78 year old female who this morning around 0500 had some shortness of breath, generalized weakness and "almost fainted." She also complained of some slight chest pain. Has had a rapid heartbeat for almost 15 years now and is been having regular cardiac work-ups either yearly or once every 2 years. Patient was prescribed metoprolol 50 mg twice daily as well as p.o. magnesium. She presented to the emergency room for new onset atrial fib. Mass brought her in and when EMS arrived her heart rate was between 110 and 125. 20 mg of Cardizem IV heart rate now is been between 60 and 80 but still irregular and still in atrial fib. She does have a history of coronary artery disease with the distal LAD. His other medical problems consist of hypothyroidism and GERD. Hospital Course Hospital Course: Her metoprolol was discontinued and she was put on diltiazem and sotalol and anticoagulated with Eliquis. She converted to a sinus rhythm has maintained that level. At rest while she is awake her heart rate is right around 60. She feels good and has no complaints. The new medications were called into her pharmacy. Her labs and examination were reassuring and she was discharged in good condition. Physical Exam Vital Signs: Temp Pulse Resp BP Pulse Ox 97.7 F 56 L 18 144/66 H 96 02/24/19 13:31 02/24/19 13:31 02/24/19 13:31 02/24/19 13:31 02/24/19 13:31 Intake & Output 02/23/19 02/24/19 02/25/19 06:59 06:59 06:59 Intake Total 502 3420 Output Total 1100 Balance 502 2320 Weight 86.7 kg 84.5 kg General appearance: PRESENT: no acute distress, cooperative Respiratory exam: PRESENT: clear to auscultation geoffrey, symmetrical, unlabored. ABSENT: accessory muscle use, chest wall tenderness, crackles, prolonged expiratory phas, rhonchi, tachypnea, wheezes Cardiovascular exam: PRESENT: RRR, +S1, +S2 Pulses: PRESENT: normal carotid pulses Vascular exam: PRESENT: normal capillary refill GI/Abdominal exam: PRESENT: normal bowel sounds, soft. ABSENT: distended, guarding, rebound, tenderness Extremities exam: ABSENT: clubbing, pedal edema Musculoskeletal exam: PRESENT: normal inspection. ABSENT: deformity Neurological exam: PRESENT: alert, awake, oriented to person, oriented to place, oriented to situation Psychiatric exam: PRESENT: appropriate affect, normal mood Skin exam: PRESENT: dry, warm Results Laboratory Results: WBC 7.9 10^3/uL (4.0-10.5) 02/22/19 12:35 RBC 3.72 10^6/uL (3.72-5.28) 02/22/19 12:35 Hgb 13.0 g/dL (12.0-15.5) 02/22/19 12:35 Hct 38.2 % (36.0-47.0) 02/22/19 12:35 MCV 103 fl (80-97) H 02/22/19 12:35 MCH 34.9 pg (27.0-33.4) H 02/22/19 12:35 MCHC 34.0 g/dL (32.0-36.0) 02/22/19 12:35 RDW 14.3 % (11.5-14.0) H 02/22/19 12:35 Plt Count 239 10^3/uL (150-450) 02/22/19 12:35 Lymph % (Auto) 47.7 % (13-45) H 02/22/19 12:35 Ector % (Auto) 9.5 % (3-13) 02/22/19 12:35 Eos % (Auto) 2.3 % (0-6) 02/22/19 12:35 Baso % (Auto) 0.4 % (0-2) 02/22/19 12:35 Absolute Neuts (auto) 3.2 10^3/uL (1.7-8.2) 02/22/19 12:35 Absolute Lymphs (auto) 3.8 10^3/uL (0.5-4.7) 02/22/19 12:35 Absolute Monos (auto) 0.8 10^3/uL (0.1-1.4) 02/22/19 12:35 Absolute Eos (auto) 0.2 10^3/uL (0.0-0.6) 02/22/19 12:35 Absolute Basos (auto) 0.0 10^3/uL (0.0-0.2) 02/22/19 12:35 Seg Neutrophils % 40.1 % (42-78) L 02/22/19 12:35 Sodium 140.3 mmol/L (137-145) 02/23/19 03:39 Potassium 4.2 mmol/L (3.6-5.0) 02/23/19 03:39 Chloride 106 mmol/L (98-107) 02/23/19 03:39 Carbon Dioxide 28 mmol/L (22-30) 02/23/19 03:39 Anion Gap 6 (5-19) 02/23/19 03:39 BUN 16 mg/dL (7-20) 02/23/19 03:39 Creatinine 0.85 mg/dL (0.52-1.25) 02/23/19 03:39 Est GFR ( Amer) > 60 (>60) 02/23/19 03:39 Est GFR (MDRD) Non-Af > 60 (>60) 02/23/19 03:39 Glucose 84 mg/dL (75-110) 02/23/19 03:39 Calcium 8.4 mg/dL (8.4-10.2) 02/23/19 03:39 Magnesium 1.9 mg/dL (1.6-2.3) 02/22/19 12:35 Total Bilirubin 0.4 mg/dL (0.2-1.3) 02/22/19 12:35 Direct Bilirubin 0.1 mg/dL (0.0-0.4) 02/22/19 12:35 Neonat Total Bilirubin Not Reportable 02/22/19 12:35 Neonat Direct Bilirubin Not Reportable 02/22/19 12:35 Neonat Indirect Bili Not Reportable 02/22/19 12:35 AST 18 U/L (14-36) 02/22/19 12:35 ALT 13 U/L (<35) 02/22/19 12:35 Alkaline Phosphatase 48 U/L (38-126) 02/22/19 12:35 CK-MB (CK-2) 0.59 ng/mL (<4.55) 02/23/19 03:39 Troponin I < 0.012 ng/mL 02/23/19 03:39 Total Protein 6.0 g/dL (6.3-8.2) L 02/22/19 12:35 Albumin 3.5 g/dL (3.5-5.0) 02/22/19 12:35 TSH 3.86 uIU/mL (0.47-4.68) 02/22/19 12:35 Urine Color YELLOW 02/22/19 13:40 Urine Appearance CLEAR 02/22/19 13:40 Urine pH 6.0 (5.0-9.0) 02/22/19 13:40 Ur Specific Grover 1.008 02/22/19 13:40 Urine Protein NEGATIVE mg/dL (NEGATIVE) 02/22/19 13:40 Urine Glucose (UA) NEGATIVE mg/dL (NEGATIVE) 02/22/19 13:40 Urine Ketones NEGATIVE mg/dL (NEGATIVE) 02/22/19 13:40 Urine Blood NEGATIVE (NEGATIVE) 02/22/19 13:40 Urine Nitrite NEGATIVE (NEGATIVE) 02/22/19 13:40 Urine Bilirubin NEGATIVE (NEGATIVE) 02/22/19 13:40 Urine Urobilinogen NEGATIVE mg/dL (<2.0) 02/22/19 13:40 Ur Leukocyte Esterase NEGATIVE (NEGATIVE) 02/22/19 13:40 Urine WBC (Auto) 0 /HPF 02/22/19 13:40 Urine RBC (Auto) 0 /HPF 02/22/19 13:40 U Hyaline Cast (Auto) 1 /LPF 02/22/19 13:40 Urine Bacteria (Auto) TRACE /HPF 02/22/19 13:40 Squamous Epi Cells Auto 1 /HPF 02/22/19 13:40 Urine Mucus (Auto) RARE /LPF 02/22/19 13:40 Urine Ascorbic Acid NEGATIVE (NEGATIVE) 02/22/19 13:40 02/22/19 02/22/19 02/22/19 12:35 17:15 21:48 CK-MB (CK-2) 0.81 0.80 Troponin I < 0.012 < 0.012 < 0.012 02/23/19 03:39 CK-MB (CK-2) 0.59 Troponin I < 0.012 Impressions: Chest X-Ray 02/22/19 12:52 IMPRESSION: Irregular left basilar scarring or atelectasis unchanged from prior. No acute airspace abnormality. Cardiomegaly. Plan Time Spent: Greater than 30 Minutes Stroke Is this a Stroke Patient?: No Acute Heart Failure - Is this a Heart Failure Patient?: No
== END 2019-02-24 13:45 | disposition home or self-care (01) ==
LOC: ER 12:18 → EH 14:59 → 5 18:36
PROVIDERS: ADMIT Hospitalist; ATTEND Hospitalist
PROC: B54DZZZ Ultrasonography of Bilateral Lower Extremity Veins (ICD-10-PCS; principal; 2019-02-23)
DX: I48.0 Paroxysmal atrial fibrillation (principal); K21.9 Gastro-esophageal reflux disease without esophagitis; I25.10 Atherosclerotic heart disease of native coronary artery without angina pectoris; E03.9 Hypothyroidism, unspecified; E78.5 Hyperlipidemia, unspecified; I10 Essential (primary) hypertension; R00.1 Bradycardia, unspecified; Z79.01 Long term (current) use of anticoagulants
CPT/HCPCS: 93005 ×2; 99285; 96375; 96365; 36415 ×2; 82553 ×2; 83735; 84443; 85025; 80048; 80053; 81001; 84484 ×2; 93971 ×2; 71046; 93010 ×2; 76882; G0378 ×4; A9270 ×19; J1650; J3475; J7030 ×3; J3490 ×2

== ENCOUNTER → 2019-04-05 | Outpatient (CLI) | payer MEDICARE, OTHER ==
[2019-04-05 08:47] LABS: ALKALINE PHOSPHATASE 58 U/L (38-126); ASPARTATE AMINO TRANSFERASE 22 U/L (14-36); BILIRUBIN,TOTAL 0.5 mg/dL (0.2-1.3); CHOLESTEROL 184.72 mg/dL (0-200); TOTAL PROTEIN 6.6 g/dL (6.3-8.2); TRIGLYCERIDES 85 mg/dL (<150)
[2019-04-05 08:59] LABS: DIRECT LDL 107 mg/dL (<100)
== END ==
LOC: LAB 07:45
PROVIDERS: ATTEND Internal Medicine Cardiovascular Disease
DX: E78.00 Pure hypercholesterolemia, unspecified (principal); Z79.899 Other long term (current) drug therapy
CPT/HCPCS: 36415; 80061; 80076

== ENCOUNTER → 2019-04-06 | Outpatient (CLI) | payer MEDICARE, OTHER ==
[2019-04-06 10:00] LABS: HEMATOCRIT 38.8 % (36.0-47.0); HEMOGLOBIN 13.5 g/dL (12.0-15.5); MEAN CORPUSCULAR HEMOGLOBIN 35.6 pg (27.0-33.4); MEAN CORPUSCULAR HGB CONC 34.8 g/dL (32.0-36.0); MEAN CORPUSCULAR VOLUME 102 fl (80-97); PLATELET COUNT 223 10^3/uL (150-450); RED BLOOD COUNT 3.79 10^6/uL (3.72-5.28); RED CELL DISTRIBUTION WIDTH 14.2 % (11.5-14.0); WHITE BLOOD COUNT 3.8 10^3/uL (4.0-10.5)
[2019-04-06 10:14] LABS: APPEARANCE,URINE SLIGHTLY-CLOUDY; BILIRUBIN,URINE NEGATIVE (NEGATIVE); COLOR,URINE YELLOW; GLUCOSE, URINE NEGATIVE (NEGATIVE); KETONES,URINE NEGATIVE (NEGATIVE); LEUKOCYTE ESTERASE,URINE TRACE (NEGATIVE); NITRITE,URINE NEGATIVE (NEGATIVE); PROTEIN,URINE NEGATIVE (NEGATIVE); URINE SPECIFIC GRAVITY 1.009; UROBILINOGEN,URINE NEGATIVE mg/dL (<2.0)
[2019-04-06 10:39] LABS: ALBUMIN 4.3 g/dL (3.5-5.0); ALKALINE PHOSPHATASE 58 U/L (38-126); ANION GAP 9 (5-19); ASPARTATE AMINO TRANSFERASE 30 U/L (14-36); BILIRUBIN,DIRECT 0.1 mg/dL (0.0-0.4); BILIRUBIN,TOTAL 0.7 mg/dL (0.2-1.3); BLOOD UREA NITROGEN 18 mg/dL (7-20); CALCIUM 9.7 mg/dL (8.4-10.2); CARBON DIOXIDE 28 mmol/L (22-30); CHLORIDE 103 mmol/L (98-107); GLUCOSE 54 mg/dL (75-110); POTASSIUM 4.2 mmol/L (3.6-5.0); TOTAL PROTEIN 7.1 g/dL (6.3-8.2)
== END ==
LOC: LAB 09:07
PROVIDERS: ATTEND Internal Medicine Cardiovascular Disease
DX: I48.0 Paroxysmal atrial fibrillation (principal); Z79.01 Long term (current) use of anticoagulants; Z79.899 Other long term (current) drug therapy
CPT/HCPCS: 36415; 80048; 80076; 81001; 82272; 83735; 85027; 85730

== ENCOUNTER 2019-05-24 16:42 | Emergency (ER) | payer MEDICARE, OTHER ==
--- NOTE | 2019-05-24 17:47 | ER Document Report ---
ED Medical Screen (RME) - General Chief Complaint: Chest Pain Stated Complaint: CHEST PAIN Time Seen by Provider: 05/24/19 17:40 Primary Care Provider: MARLA RAMOS MD [Primary Care Provider] - Follow up as needed Notes: Patient is a 78-year-old female with a history of A. fib, hypothyroid, acid reflux who presents to the emergency department with a chief complaint of chest pain. Patient reports she developed chest pain about 2 days ago. Patient reports that it was so severe it had her laying on her back. Patient reports that did subside and she began to feel constant midsternal chest pain today. Patient reports this did radiate in between her shoulder blades. Patient reports it is sharp in nature. Patient states that she did go to her credit compliance officer Dr. Garza and was told to come here for further evaluation. Patient is on Eliquis for the A. fib. TRAVEL OUTSIDE OF THE [place] IN LAST 30 DAYS: No - Related Data Allergies/Adverse Reactions: No Known Allergies Allergy (Verified 02/22/19 12:45) Home Medications: diltalizem Past Medical History - Social History Frequency of alcohol use: None Drug Abuse: None - Past Medical History Cardiac Medical History: Reports: Hx Hypercholesterolemia, Hx Hypertension Endocrine Medical History: Reports: Hx Hypothyroidism GI Medical History: Reports: Hx Gastroesophageal Reflux Disease - Immunizations Hx Diphtheria, Pertussis, Tetanus Vaccination: Yes Physical Exam - Cardiovascular Rhythm: Regular Heart sounds: Normal auscultation, S1 appreciated, S2 appreciated Course - Re-evaluation Re-evalutation: 05/24/19 17:47 I have greeted and performed a rapid initial assessment of this patient. A comprehensive ED assessment and evaluation of the patient, analysis of test results and completion of the medical decision making process will be conducted by additional ED providers. Doctor's Discharge - Discharge Referrals: MARLA RAMOS MD [Primary Care Provider] - Follow up as needed
--- NOTE | 2019-05-24 18:11 | RADIOLOGY REPORT (SQ) ---
EXAM DESCRIPTION: CHEST 2 VIEWS COMPLETED DATE/TIME: 05/24/2019 5:57 pm REASON FOR STUDY: chest pressure COMPARISON: 02/22/2019. EXAM PARAMETERS: NUMBER OF VIEWS: two views TECHNIQUE: Digital Frontal and Lateral radiographic views of the chest acquired. RADIATION DOSE: NA LIMITATIONS: none FINDINGS: LUNGS AND PLEURA: No opacities, masses or pneumothorax. No pleural effusion. MEDIASTINUM AND HILAR STRUCTURES: No masses or contour abnormalities. HEART AND VASCULAR STRUCTURES: Heart normal size. No evidence for failure. BONES: No acute findings. HARDWARE: None in the chest. OTHER: No other significant finding. IMPRESSION: NO ACUTE RADIOGRAPHIC FINDING IN THE CHEST. TECHNICAL DOCUMENTATION: JOB ID: [id number] [employer]- All Rights Reserved Reading location - IP/workstation name: [email or web address] KATE
[2019-05-24 18:32] LABS: ABSOLUTE EOSINOPHILS # (AUTO) 0.3 10^3/uL (0.0-0.6); ABSOLUTE LYMPHOCYTES (AUTO) 1.9 10^3/uL (0.5-4.7); ABSOLUTE MONOCYTES (AUTO) 0.5 10^3/uL (0.1-1.4); ABSOLUTE NEUT (AUTO) 1.6 10^3/uL (1.7-8.2); BASOPHILS % (AUTO) 0.6 % (0-2); EOSINOPHILS % (AUTO) 6.7 % (0-6); HEMOGLOBIN 13.1 g/dL (12.0-15.5); MEAN CORPUSCULAR HEMOGLOBIN 35.7 pg (27.0-33.4); MEAN CORPUSCULAR HGB CONC 34.4 g/dL (32.0-36.0); MEAN CORPUSCULAR VOLUME 104 fl (80-97); MONOCYTES % (AUTO) 11.3 % (3-13); PLATELET COUNT 229 10^3/uL (150-450); RED BLOOD COUNT 3.66 10^6/uL (3.72-5.28); RED CELL DISTRIBUTION WIDTH 14.1 % (11.5-14.0); SEGMENTED NEUTROPHILS % (AUTO) 37.4 % (42-78); TOTAL CELLS COUNTED % (AUTO) 100 %; WHITE BLOOD COUNT 4.3 10^3/uL (4.0-10.5)
[2019-05-24 18:42] LABS: ALBUMIN 4.3 g/dL (3.5-5.0); ALKALINE PHOSPHATASE 64 U/L (38-126); ANION GAP 7 (5-19); ASPARTATE AMINO TRANSFERASE 30 U/L (14-36); BILIRUBIN,DIRECT 0.2 mg/dL (0.0-0.4); BILIRUBIN,TOTAL 0.7 mg/dL (0.2-1.3); BLOOD UREA NITROGEN 18 mg/dL (7-20); CALCIUM 9.5 mg/dL (8.4-10.2); CARBON DIOXIDE 29 mmol/L (22-30); CHLORIDE 103 mmol/L (98-107); GLUCOSE 98 mg/dL (75-110); POTASSIUM 4.3 mmol/L (3.6-5.0); TOTAL PROTEIN 7.3 g/dL (6.3-8.2)
--- NOTE | 2019-05-24 21:10 | ER Document Report ---
ED General - General Chief Complaint: Chest Pain Stated Complaint: CHEST PAIN Time Seen by Provider: 05/24/19 17:40 Primary Care Provider: MARLA RAMOS MD [EMERITUS] - Follow up as needed TRAVEL OUTSIDE OF THE [place] IN LAST 30 DAYS: No - HPI Notes: Patient is a 78-year-old female with a known history of atrial fibrillation, currently anticoagulated on Eliquis, taking sotalol, who presents the emergency department for evaluation of chest pain. She states that Friday she developed chest pain just to the left of her sternum. She states she actually felt like it was originating from her back. It was sharp in nature. She states she laid down flat, believes that made it better. Her symptoms lasted for about an hour. She states she has had absolutely no associated shortness of breath, diaphoresis, near syncope, or nausea. She states she went about her day on Friday without any difficulties. She states about an hour after waking this morning she developed this pain again. She states it was similar in nature, but not as severe. It lasted for about 4 hours. She states she did not do anything to try and make it better. Again she had absolutely no associated sym ptoms. She has been chest pain-free for about 8 hours at the time of my evaluation. Otherwise she has been taking her medications as prescribed. She states that she has had some shoulder pain as well, this is been an ongoing issue for her. - Related Data Allergies/Adverse Reactions: No Known Allergies Allergy (Verified 05/24/19 19:11) Home Medications: diltalizem, sotalol, Eliquis, Synthroid, omeprazole, Zetia. Doses confirmed. Please see note. Past Medical History - General Information source: Patient - Social History Smoking Status: Never Smoker Frequency of alcohol use: None Drug Abuse: None Family History: Reviewed & Not Pertinent, CAD Patient has suicidal ideation: No Patient has homicidal ideation: No - Past Medical History Cardiac Medical History: Reports: Hx Atrial Fibrillation, Hx Hypercholesterolemia Endocrine Medical History: Reports: Hx Hypothyroidism GI Medical History: Reports: Hx Gastroesophageal Reflux Disease - Immunizations Hx Diphtheria, Pertussis, Tetanus Vaccination: Yes Review of Systems - Review of Systems Constitutional: No symptoms reported EENT: No symptoms reported Cardiovascular: See HPI Respiratory: No symptoms reported Gastrointestinal: No symptoms reported Genitourinary: No symptoms reported Musculoskeletal: See HPI Skin: No symptoms reported Neurological/Psychological: No symptoms reported Physical Exam - Vital signs Vitals: Temp Pulse Resp BP Pulse Ox 97.5 F 53 L 14 136/60 H 98 05/24/19 19:41 05/24/19 19:41 05/24/19 19:41 05/24/19 19:41 05/24/19 19:41 - Notes Notes: Vital signs reviewed, please refer to chart. Head is normocephalic, atraumatic. Pupils equal round, reactive to light. Neck is supple without meningismus. Heart is regular rate and rhythm. Lungs are clear to auscultation bilaterally. Examination of the chest wall yields no obvious abnormality. She is not tender to palpation. Examination of the spine yields no midline tenderness or step- off. She has some tenderness to palpation of the paraspinal musculature from approximately T3-T7 on the left with associated ropiness and tension. This does reproduce some of her pain. Abdomen is soft, nontender, normoactive bowel sounds throughout. Extremities without cyanosis, clubbing. Posterior calves are nontender. Peripheral pulses are equal. Skin is warm and dry. Patient is awake, alert, neurological exam is nonfocal. Course - Re-evaluation Re-evalutation: 05/24/19 21:07 Patient presents emergency department for evaluation. She is had chest pain on 2 separate occasions over the last several days. Given the duration of pain and the completely negative cardiac enzymes, I do suspect that she is ruled out for acute coronary syndrome. I explained to the patient that she is not without risk factors for coronary artery disease, although they are minimal. At this point, I do not have a strong suspicion for acute coronary syndrome. Her peripheral pulses are equal. She does not show any signs of dissection. She has no risk factors for pulmonary embolus. Again she has absolutely no associated symptoms at this pain. My strong suspicion is that this is musculoskeletal. She already has an appointment with for follow-up in regards to her atrial fibrillation. She is encouraged to continue to take her medications. She is told to apply moist heat to the painful area in her back. If her pain returns she needs to return to the ED, and she voiced understanding to this. Otherwise she is to discuss this with her appeals rn. She is to ret urn to the ED with worsening or new concerning symptoms of any sort. - Vital Signs Vital signs: Temp Pulse Resp BP Pulse Ox 97.5 F 53 L 14 136/60 H 98 05/24/19 19:41 05/24/19 19:41 05/24/19 19:41 05/24/19 19:41 05/24/19 19:41 - Laboratory Result Diagrams: 05/24/19 18:05 05/24/19 18:05 Laboratory results interpreted by me: 05/24/19 18:05 RBC 3.66 L MCV 104 H MCH 35.7 H RDW 14.1 H Eos % (Auto) 6.7 H Absolute Neuts (auto) 1.6 L Seg Neutrophils % 37.4 L - Diagnostic Test Radiology reviewed: Reports reviewed Radiology results interpreted by me: 05/24/19 21:08 Chest X-Ray 05/24/19 17:45 IMPRESSION: NO ACUTE RADIOGRAPHIC FINDING IN THE CHEST. Discharge - Discharge Clinical Impression: Chest pain Qualifiers: Chest pain type: unspecified Qualified Code(s): R07.9 - Chest pain, unspecified Back pain Qualifiers: Back pain location: thoracic back pain Chronicity: acute Back pain laterality: left Qualified Code(s): M54.6 - Pain in thoracic spine Condition: Stable Disposition: HOME, SELF-CARE Instructions: Chest Pain of Unclear Cause ([facility]) Additional Instructions: Your work-up here was negative for any signs of an acute heart attack. This, however, does not rule out coronary artery disease. You need to follow-up closely with your appeals rn. Apply moist heat to the painful area in your back. If your chest pain returns, or you develop new or concerning symptoms of any sort, please return immediately to the emergency department for evaluation. Referrals: MARLA RAMOS MD [EMERITUS] - Follow up as needed
[2019-05-24 21:40] VITALS: BP 131/55
--- NOTE | 2019-05-24 22:20 | EKG REPORT ---
SEVERITY:- ABNORMAL ECG - SINUS RHYTHM CONSIDER RVH OR POSTERIOR INFARCT LATERAL INFARCT, OLD : Confirmed by: Peter Benitez 24-May-2019 22:19:57
== END 2019-05-24 21:30 | disposition home or self-care (01) ==
LOC: ER 16:42
DX: R07.9 Chest pain, unspecified (principal); M54.6 Pain in thoracic spine; M25.519 Pain in unspecified shoulder; E03.9 Hypothyroidism, unspecified; E78.00 Pure hypercholesterolemia, unspecified; K21.9 Gastro-esophageal reflux disease without esophagitis; I48.91 Unspecified atrial fibrillation; Z79.01 Long term (current) use of anticoagulants; Z79.899 Other long term (current) drug therapy; Z82.49 Family history of ischemic heart disease and other diseases of the circulatory system
CPT/HCPCS: 36415; 71046; 80053; 84484; 85025; 93005; 93010; 99285

== ENCOUNTER → 2019-05-28 | Outpatient (CLI) | payer MEDICARE, OTHER ==
[2019-05-28 09:09] LABS: HEMATOCRIT 39.4 % (36.0-47.0); HEMOGLOBIN 13.4 g/dL (12.0-15.5); MEAN CORPUSCULAR HEMOGLOBIN 35.2 pg (27.0-33.4); MEAN CORPUSCULAR VOLUME 104 fl (80-97); PLATELET COUNT 253 10^3/uL (150-450); RED BLOOD COUNT 3.81 10^6/uL (3.72-5.28); WHITE BLOOD COUNT 5.4 10^3/uL (4.0-10.5)
[2019-05-28 09:17] LABS: APPEARANCE,URINE SLIGHTLY-CLOUDY; BILIRUBIN,URINE NEGATIVE (NEGATIVE); COLOR,URINE YELLOW; GLUCOSE, URINE NEGATIVE (NEGATIVE); KETONES,URINE NEGATIVE (NEGATIVE); LEUKOCYTE ESTERASE,URINE LARGE (NEGATIVE); NITRITE,URINE NEGATIVE (NEGATIVE); PROTEIN,URINE NEGATIVE (NEGATIVE)
[2019-05-28 09:44] LABS: ALBUMIN 4.6 g/dL (3.5-5.0); ALKALINE PHOSPHATASE 63 U/L (38-126); ANION GAP 10 (5-19); ASPARTATE AMINO TRANSFERASE 30 U/L (14-36); BILIRUBIN,DIRECT 0.2 mg/dL (0.0-0.4); BILIRUBIN,TOTAL 0.8 mg/dL (0.2-1.3); BLOOD UREA NITROGEN 17 mg/dL (7-20); CALCIUM 9.8 mg/dL (8.4-10.2); CARBON DIOXIDE 27 mmol/L (22-30); CHLORIDE 104 mmol/L (98-107); GLUCOSE 103 mg/dL (75-110); POTASSIUM 4.3 mmol/L (3.6-5.0); TOTAL PROTEIN 7.6 g/dL (6.3-8.2)
== END ==
LOC: LAB 08:33
PROVIDERS: ATTEND Internal Medicine Cardiovascular Disease
DX: I48.0 Paroxysmal atrial fibrillation (principal); Z79.01 Long term (current) use of anticoagulants; Z79.899 Other long term (current) drug therapy
CPT/HCPCS: 36415; 80048; 80076; 81001; 82272; 83735; 85027; 85730

== ENCOUNTER → 2019-06-18 | Outpatient (CLI) | payer MEDICARE, OTHER ==
--- NOTE | 2019-06-18 11:10 | WOMENS IMAGING REPORT ---
EXAM DESCRIPTION: U/S ABDOMEN LIMITED COMPLETED DATE/TIME: 06/18/2019 8:02 am REASON FOR STUDY: R10.9 UNSPECIFIED ABDOMINAL PAIN R10.9 UNSPECIFIED ABDOMINAL PAIN COMPARISON: None. TECHNIQUE: Dynamic and static grayscale images acquired of the abdomen and recorded on PACS. Additio nal selected color Doppler and spectral images recorded. LIMITATIONS: None. FINDINGS: PANCREAS: The visualized portions of the pancreas appear normal. LIVER: Normal contour and echotexture. LIVER VASCULATURE: Hepatopetal flow within the portal veins. GALLBLADDER: The gallbladder wall measures 2 mm in thickness. There is no cholelithiasis, sludge or pericholecystic fluid. ULTRASOUND-DETECTED CHILDS'S SIGN: Negative. INTRAHEPATIC DUCTS AND COMMON DUCT: The common bile duct measures 7.4 mm in diameter. The intrahepat ic bile ducts are normal in caliber. INFERIOR VENA CAVA: Patent. AORTA: No aneurysm. RIGHT KIDNEY: The right kidney measures 10.9 cm in length. There is no hydronephrosis. There is a round anechoic structure in the upper pole of the kidney consistent with a cyst that measures 1.7 x 1 .2 x 1.8 cm. PERITONEAL AND RIGHT PLEURAL SPACE: No ascites or effusions. OTHER: No other findings. IMPRESSION: The common bile duct measures 7.4 mm in diameter (which when accounting for the patient' s age) can be considered normal. If of concern then correlation with serum bilirubin and alkaline ph osphatase is recommended to determine the need for further evaluation with ERCP/MRCP. TECHNICAL DOCUMENTATION: JOB ID: [id number] [employer]- All Rights Reserved Reading location - IP/workstation name: [email or web address]
== END ==
LOC: WI 07:30
PROVIDERS: ATTEND Registered Nurse
DX: R10.13 Epigastric pain (principal)
CPT/HCPCS: 76705

== ENCOUNTER → 2019-09-06 | Outpatient (CLI) | payer MEDICARE, OTHER ==
[2019-09-06 15:41] LABS: HEMATOCRIT 35.8 % (36.0-47.0); HEMOGLOBIN 12.4 g/dL (12.0-15.5); MEAN CORPUSCULAR HEMOGLOBIN 36.8 pg (27.0-33.4); MEAN CORPUSCULAR HGB CONC 34.7 g/dL (32.0-36.0); MEAN CORPUSCULAR VOLUME 106 fl (80-97); PLATELET COUNT 209 10^3/uL (150-450); RED BLOOD COUNT 3.37 10^6/uL (3.72-5.28); RED CELL DISTRIBUTION WIDTH 14.5 % (11.5-14.0)
[2019-09-06 15:46] LABS: APPEARANCE,URINE CLEAR; BILIRUBIN,URINE NEGATIVE (NEGATIVE); COLOR,URINE STRAW; GLUCOSE, URINE NEGATIVE (NEGATIVE); KETONES,URINE NEGATIVE (NEGATIVE); LEUKOCYTE ESTERASE,URINE MODERATE (NEGATIVE); NITRITE,URINE NEGATIVE (NEGATIVE); PROTEIN,URINE NEGATIVE (NEGATIVE); URINE SPECIFIC GRAVITY 1.008; UROBILINOGEN,URINE NEGATIVE mg/dL (<2.0)
[2019-09-06 16:01] LABS: ALKALINE PHOSPHATASE 59 U/L (38-126); ANION GAP 6 (5-19); ASPARTATE AMINO TRANSFERASE 25 U/L (14-36); BILIRUBIN,TOTAL 0.6 mg/dL (0.2-1.3); BLOOD UREA NITROGEN 16 mg/dL (7-20); CALCIUM 9.1 mg/dL (8.4-10.2); CARBON DIOXIDE 26 mmol/L (22-30); CHLORIDE 105 mmol/L (98-107); GLUCOSE 108 mg/dL (75-110); TOTAL PROTEIN 6.5 g/dL (6.3-8.2)
== END ==
LOC: OD 14:17
PROVIDERS: ATTEND Internal Medicine Cardiovascular Disease
DX: E61.2 Magnesium deficiency (principal); I48.0 Paroxysmal atrial fibrillation; Z79.01 Long term (current) use of anticoagulants; E03.9 Hypothyroidism, unspecified
CPT/HCPCS: 36415; 80048; 80076; 81001; 82272; 83735; 84443; 85027; 85730

== ENCOUNTER → 2019-10-21 | Outpatient (CLI) | payer MEDICARE, OTHER ==
--- NOTE | 2019-10-21 17:59 | RADIOLOGY REPORT (SQ) ---
EXAM DESCRIPTION: U/S NON-OB PELVIS W/O DOP; U/S NON-OB PELVIS TV W/O DOP IMAGES COMPLETED DATE/TIME: 10/21/2019 5:40 pm; 10/21/2019 5:41 pm REASON FOR STUDY: (R10.30)LOWER ABDOMINAL PAIN, UNSPECIFIED R10.30 LOWER ABDOMINAL PAIN, UNSPECIFIE D COMPARISON: None. TECHNIQUE: Dynamic and static grayscale images acquired of the pelvis via transabdominal and transva ginal approach and recorded on PACS. Additional selected color Doppler and spectral images recorded. LIMITATIONS: None. FINDINGS: UTERUS: Contour normal. No mass. ENDOMETRIAL STRIPE: No focal or generalized thickening. No masses. CERVIX: No nabothian cysts. RIGHT OVARY AND DOPPLER: Ovary not visualized. LEFT OVARY AND DOPPLER: Ovary not visualized. FREE FLUID: None noted. OTHER: No other significant finding. MEASUREMENTS: UTERUS: 2.2 x 3.6 x 6.0 cm. ENDOMETRIAL STRIPE: 3.6 mm. RIGHT OVARY: Not visualized. LEFT OVARY: Not visualized. IMPRESSION: LIMITED STUDY. OVARIES NOT VISUALIZED. NO SIGNIFICANT FINDINGS. TECHNICAL DOCUMENTATION: JOB ID: [id number] [email or web address]- All Rights Reserved Rev-10/03 Reading location - IP/workstation name: [email or web address]
--- NOTE | 2019-10-21 17:59 | RADIOLOGY REPORT (SQ) ---
EXAM DESCRIPTION: U/S NON-OB PELVIS W/O DOP; U/S NON-OB PELVIS TV W/O DOP IMAGES COMPLETED DATE/TIME: 10/21/2019 5:40 pm; 10/21/2019 5:41 pm REASON FOR STUDY: (R10.30)LOWER ABDOMINAL PAIN, UNSPECIFIED R10.30 LOWER ABDOMINAL PAIN, UNSPECIFIE D COMPARISON: None. TECHNIQUE: Dynamic and static grayscale images acquired of the pelvis via transabdominal and transva ginal approach and recorded on PACS. Additional selected color Doppler and spectral images recorded. LIMITATIONS: None. FINDINGS: UTERUS: Contour normal. No mass. ENDOMETRIAL STRIPE: No focal or generalized thickening. No masses. CERVIX: No nabothian cysts. RIGHT OVARY AND DOPPLER: Ovary not visualized. LEFT OVARY AND DOPPLER: Ovary not visualized. FREE FLUID: None noted. OTHER: No other significant finding. MEASUREMENTS: UTERUS: 2.2 x 3.6 x 6.0 cm. ENDOMETRIAL STRIPE: 3.6 mm. RIGHT OVARY: Not visualized. LEFT OVARY: Not visualized. IMPRESSION: LIMITED STUDY. OVARIES NOT VISUALIZED. NO SIGNIFICANT FINDINGS. TECHNICAL DOCUMENTATION: JOB ID: [id number] [employer]- All Rights Reserved Rev-10/03 Reading location - IP/workstation name: [email or web address]
== END ==
LOC: RAD 17:02
PROVIDERS: ATTEND Registered Nurse
DX: R10.30 Lower abdominal pain, unspecified (principal)
CPT/HCPCS: 76830; 76856

== ENCOUNTER → 2019-10-27 | Outpatient (CLI) | payer MEDICARE, OTHER ==
[2019-10-27 10:25] LABS: TRIGLYCERIDES 92 mg/dL (<150)
[2019-10-27 10:35] LABS: DIRECT LDL 132 mg/dL (<100)
== END ==
LOC: OD 08:53
PROVIDERS: ATTEND Internal Medicine Cardiovascular Disease
DX: E61.2 Magnesium deficiency (principal); E78.00 Pure hypercholesterolemia, unspecified
CPT/HCPCS: 36415; 80061; 83735

== ENCOUNTER → 2019-12-07 | Outpatient (CLI) | payer MEDICARE, OTHER ==
[2019-12-07 08:39] LABS: HEMATOCRIT 36.3 % (36.0-47.0); HEMOGLOBIN 12.4 g/dL (12.0-15.5); MEAN CORPUSCULAR HEMOGLOBIN 35.6 pg (27.0-33.4); MEAN CORPUSCULAR HGB CONC 34.2 g/dL (32.0-36.0); MEAN CORPUSCULAR VOLUME 104 fl (80-97); PLATELET COUNT 209 10^3/uL (150-450); RED BLOOD COUNT 3.49 10^6/uL (3.72-5.28); RED CELL DISTRIBUTION WIDTH 13.5 % (11.5-14.0); WHITE BLOOD COUNT 3.6 10^3/uL (4.0-10.5)
[2019-12-07 08:49] LABS: APPEARANCE,URINE CLEAR; BILIRUBIN,URINE NEGATIVE (NEGATIVE); COLOR,URINE STRAW; GLUCOSE, URINE NEGATIVE (NEGATIVE); KETONES,URINE NEGATIVE (NEGATIVE); LEUKOCYTE ESTERASE,URINE SMALL (NEGATIVE); NITRITE,URINE NEGATIVE (NEGATIVE); PROTEIN,URINE NEGATIVE (NEGATIVE); URINE SPECIFIC GRAVITY 1.009; UROBILINOGEN,URINE NEGATIVE mg/dL (<2.0)
[2019-12-07 09:01] LABS: ALKALINE PHOSPHATASE 51 U/L (38-126); ASPARTATE AMINO TRANSFERASE 23 U/L (14-36); BILIRUBIN,TOTAL 0.5 mg/dL (0.2-1.3); BLOOD UREA NITROGEN 13 mg/dL (7-20); CALCIUM 9.3 mg/dL (8.4-10.2); CARBON DIOXIDE 29 mmol/L (22-30); CHLORIDE 106 mmol/L (98-107); GLUCOSE 112 mg/dL (75-110); POTASSIUM 4.2 mmol/L (3.6-5.0); TOTAL PROTEIN 6.4 g/dL (6.3-8.2)
[2019-12-07 09:46] LABS: ANION GAP 4 (5-19)
== END ==
LOC: OD 07:48
PROVIDERS: ATTEND Internal Medicine Cardiovascular Disease
DX: E61.2 Magnesium deficiency (principal); I48.0 Paroxysmal atrial fibrillation; Z79.01 Long term (current) use of anticoagulants
CPT/HCPCS: 36415; 80048; 80076; 81001; 82272; 83735; 85027; 85730

== ENCOUNTER → 2020-01-06 | Outpatient (CLI) | payer MEDICARE, OTHER ==
[2020-01-06 08:21] LABS: HEMATOCRIT 37.6 % (36.0-47.0); HEMOGLOBIN 12.7 g/dL (12.0-15.5); MEAN CORPUSCULAR HEMOGLOBIN 35.6 pg (27.0-33.4); MEAN CORPUSCULAR HGB CONC 33.7 g/dL (32.0-36.0); MEAN CORPUSCULAR VOLUME 106 fl (80-97); PLATELET COUNT 236 10^3/uL (150-450); RED BLOOD COUNT 3.56 10^6/uL (3.72-5.28); RED CELL DISTRIBUTION WIDTH 13.9 % (11.5-14.0)
== END ==
LOC: OD 07:30
PROVIDERS: ATTEND Internal Medicine Cardiovascular Disease
DX: K92.2 Gastrointestinal hemorrhage, unspecified (principal); Z79.01 Long term (current) use of anticoagulants
CPT/HCPCS: 36415; 82272; 85027

== ENCOUNTER → 2020-01-19 | Outpatient (CLI) | payer MEDICARE, OTHER ==
--- NOTE | 2020-01-19 11:58 | WOMENS IMAGING REPORT ---
EXAM DESCRIPTION: BILAT SCREENING MAMMO W/CAD IMAGES COMPLETED DATE/TIME: 01/19/2020 10:20 am REASON FOR STUDY: Z12.31 ENCNTR SCREEN MAMMOGRAM FOR MALIGNANT NEOPLASM OF BREAST Z12.31 ENCNTR SCR EEN MAMMOGRAM FOR MALIGNANT NEOPLASM OF JENNY COMPARISON: 08/05/2018, 07/01/2017, 06/19/2016 EXAM PARAMETERS: Standard craniocaudal and mediolateral oblique views of each breast recorded using digital acquisition. Read with the assistance of CAD. .[facility] - R2 GFS IT Version 2.4 LIMITATIONS: None. FINDINGS: No suspicious masses, suspicious calcifications or architectural distortion. No areas of c oncern. IMPRESSION: NEGATIVE MAMMOGRAM. BIRADS 1 BREAST DENSITY: b. There are scattered areas of fibroglandular density. BIRAD: ASSESSMENT: 1 NEGATIVE RECOMMENDATION: ROUTINE SCREENING COMMENT: The patient has been notified of the results by letter per MQSA requirements. Additional no tification policies are in place for contacting patient with suspicious or incomplete findings. Quality ID #225: The [employer] recommends an annual screening mammogram for women aged 40 years or over. This facility utilizes a reminder system to ensure that all patients receive reminder letters, and/or direct phone calls for appointments. This includes reminders for routine scr eening mammograms, diagnostic mammograms, or other Breast Imaging Interventions when appropriate. Th is patient will be placed in the appropriate reminder system. TECHNICAL DOCUMENTATION: FINDING NUMBER: (1) ASSESSMENT: (1) JOB ID: [id number] [employer]- All Rights Reserved Reading location - IP/workstation name: [email or web address]
== END ==
LOC: WI 09:46
PROVIDERS: ATTEND Family Medicine
DX: Z12.31 Encounter for screening mammogram for malignant neoplasm of breast (principal)
CPT/HCPCS: 77067

== ENCOUNTER → 2020-02-18 | Outpatient (CLI) | payer MEDICARE, OTHER ==
[2020-02-18 09:03] LABS: HEMATOCRIT 35.7 % (36.0-47.0); HEMOGLOBIN 12.4 g/dL (12.0-15.5); MEAN CORPUSCULAR HEMOGLOBIN 36.8 pg (27.0-33.4); MEAN CORPUSCULAR HGB CONC 34.8 g/dL (32.0-36.0); MEAN CORPUSCULAR VOLUME 106 fl (80-97); PLATELET COUNT 228 10^3/uL (150-450); RED BLOOD COUNT 3.38 10^6/uL (3.72-5.28); RED CELL DISTRIBUTION WIDTH 15.4 % (11.5-14.0); WHITE BLOOD COUNT 3.8 10^3/uL (4.0-10.5)
[2020-02-18 09:24] LABS: APPEARANCE,URINE CLEAR; BILIRUBIN,URINE NEGATIVE (NEGATIVE); COLOR,URINE STRAW; GLUCOSE, URINE NEGATIVE (NEGATIVE); KETONES,URINE NEGATIVE (NEGATIVE); LEUKOCYTE ESTERASE,URINE MODERATE (NEGATIVE); NITRITE,URINE NEGATIVE (NEGATIVE); PROTEIN,URINE NEGATIVE (NEGATIVE); URINE SPECIFIC GRAVITY 1.006; UROBILINOGEN,URINE NEGATIVE mg/dL (<2.0)
[2020-02-18 09:24] LABS: ALKALINE PHOSPHATASE 47 U/L (38-126); ANION GAP 7 (5-19); ASPARTATE AMINO TRANSFERASE 23 U/L (14-36); BILIRUBIN,DIRECT 0.2 mg/dL (0.0-0.4); BILIRUBIN,TOTAL 0.7 mg/dL (0.2-1.3); BLOOD UREA NITROGEN 12 mg/dL (7-20); CALCIUM 9.5 mg/dL (8.4-10.2); CARBON DIOXIDE 28 mmol/L (22-30); CHLORIDE 106 mmol/L (98-107); GLUCOSE 104 mg/dL (75-110); POTASSIUM 4.3 mmol/L (3.6-5.0); TOTAL PROTEIN 6.3 g/dL (6.3-8.2)
== END ==
LOC: OD 07:58
PROVIDERS: ATTEND Internal Medicine Cardiovascular Disease
DX: E03.9 Hypothyroidism, unspecified (principal); E61.2 Magnesium deficiency; I48.0 Paroxysmal atrial fibrillation; Z79.01 Long term (current) use of anticoagulants
CPT/HCPCS: 36415; 80048; 80076; 81001; 82272; 83735; 84443; 85027; 85730

== ENCOUNTER → 2020-05-17 | Outpatient (CLI) | payer MEDICARE, OTHER ==
[2020-05-17 08:26] LABS: HEMATOCRIT 34.2 % (36.0-47.0); HEMOGLOBIN 11.8 g/dL (12.0-15.5); MEAN CORPUSCULAR HEMOGLOBIN 35.9 pg (27.0-33.4); MEAN CORPUSCULAR HGB CONC 34.3 g/dL (32.0-36.0); MEAN CORPUSCULAR VOLUME 105 fl (80-97); PLATELET COUNT 239 10^3/uL (150-450); RED BLOOD COUNT 3.27 10^6/uL (3.72-5.28); RED CELL DISTRIBUTION WIDTH 13.3 % (11.5-14.0); WHITE BLOOD COUNT 3.7 10^3/uL (4.0-10.5)
[2020-05-17 08:45] LABS: ALBUMIN 3.8 g/dL (3.5-5.0); ALKALINE PHOSPHATASE 51 U/L (38-126); ASPARTATE AMINO TRANSFERASE 24 U/L (14-36); BILIRUBIN,TOTAL 0.5 mg/dL (0.2-1.3); BLOOD UREA NITROGEN 13 mg/dL (7-20); CALCIUM 9.5 mg/dL (8.4-10.2); CARBON DIOXIDE 31 mmol/L (22-30); CHLORIDE 106 mmol/L (98-107); GLUCOSE 110 mg/dL (75-110); POTASSIUM 4.6 mmol/L (3.6-5.0); TOTAL PROTEIN 6.4 g/dL (6.3-8.2)
[2020-05-17 08:50] LABS: ANION GAP 2 (5-19)
[2020-05-17 08:51] LABS: BILIRUBIN,URINE NEGATIVE (NEGATIVE); COLOR,URINE STRAW; GLUCOSE, URINE NEGATIVE (NEGATIVE); KETONES,URINE NEGATIVE (NEGATIVE); LEUKOCYTE ESTERASE,URINE LARGE (NEGATIVE); NITRITE,URINE NEGATIVE (NEGATIVE); PROTEIN,URINE NEGATIVE (NEGATIVE); UROBILINOGEN,URINE NEGATIVE mg/dL (<2.0)
[2020-05-17 08:52] LABS: APPEARANCE,URINE CLEAR
[2020-05-17 11:26] LABS: TRIGLYCERIDES 111 mg/dL (<150)
[2020-05-17 11:37] LABS: DIRECT LDL 144 mg/dL (<100)
== END ==
LOC: OD 07:41
PROVIDERS: ATTEND Internal Medicine Cardiovascular Disease
DX: E61.2 Magnesium deficiency (principal); E78.00 Pure hypercholesterolemia, unspecified; I48.0 Paroxysmal atrial fibrillation; Z79.01 Long term (current) use of anticoagulants
CPT/HCPCS: 36415; 80048; 80061; 80076; 81001; 82272; 83735; 85027; 85730